=== PATIENT | female | born 1955 | race Asian ===

== ENCOUNTER 2024-02-29 12:59 | Outpatient (AMB) | payer MEDICARE, OTHER, SELFPAY ==
--- NOTE | 2024-02-29 13:06 | MHC.PC.OV ---
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 Intake Note: New patient visit Savings Teller Required: No Post menopausal: Yes Allergies No Known Allergies Allergy (Verified 02/29/24 13:07) Medication List - Last Reconciled 02/29/24 by Chante Arguello PA-C aspirin 81 mg PO DAILY pravastatin 40 mg PO DAILY Tobacco use date assessed: 02/29/24 Fall risk assessment: No Falls in past year Last assessed Fall Risk: 02/29/24 Dental Screening Dental Screen Date: 02/29/24 Did you have a dental visit in the last 12 months?: Yes Did you have a dental problem in the last 6 months where you did not have access to dental care?: No Was dental information given to patient?: Patient has dentist 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 She is transferring from [place]. CV: Her blood pressure today in the office is 146/78. She is on hydrochlorothiazide 12.5 mg. She can not tell me when her last cholesterol was but is on pravastatin 40 mg. No myalgias. No current chest pain, shortness and breath or palpitations. She states in the past she had this and went to Cardiology for a workup in [place]. States that she has had 2 stress tests, a Holter and an echo. We do not have any results today. Psych: She has been on wellbutrin for years but does not tolerate this. She states that every time she takes it she gets constipation. She does not feel like her anxiety and depression are well controlled and she has a hard time falling asleep and staying asleep at night. She thinks that that got worse with being on the Wellbutrin but it was an issue prior to the Wellbutrin. No SI/HI. She has been having some increased stress now that she lives in [place]. She is living with her son. Has a hx of abnormal left mammograms Mammogram: Colonoscopy: 2020 and states it was normal Bone density: about 3 years ago- osteoporosis- declines medications, believes that she tried Fosamax in the past but can not tell me why she did not tolerate this. Pap: s/p total hysterectomy [facility] Medical History (Updated 02/29/24 @ 14:20 by Chante Arguello PA-C) Osteoporosis Abnormal mammogram of left breast Major depressive disorder, recurrent, mild Generalized anxiety disorder Insomnia Dyslipidemia Hypertension Surgical History (Updated 02/29/24 @ 14:00 by Chante Arguello PA-C) S/P total hysterectomy Social History (Updated 02/29/24 @ 13:09 by Shannan Silverio CMA) Patient Tobacco Use Status: Never used Tobacco e-Cigarette/Vaping Use: Never Used Second Hand Smoke Exposure: Yes (past) service: No Current occupational status: retired Cognitive needs: No Hearing needs: No Vision needs: No Questionnaire PHQ-9 Over the last 2 weeks, how often have you been bothered by any of the following problems? 1. Little interest or pleasure in doing things: more than half the days 2. Feeling down, depressed, or hopeless: several days 3. Trouble falling or staying asleep, or sleeping too much: nearly every day 4. Feeling tired or having little energy: nearly every day 5. Poor appetite or overeating: several days 6. Feeling bad about yourself - or that you are a failure or have let yourself or your family down: several days 7. Trouble concentrating on things, such as reading the newspaper or watching television: several days 8. Moving or speaking so slowly that other people could have noticed. Or the opposite - being so fidgety or restless that you have been moving around a lot more than usual: several days 9. Thoughts that you would be better off or of hurting yourself in some way: not at all Total score: 13 Depression Screening Interpretation: Positive Depression Screening Follow-up: Existing condition, In treatment, New Medication prescribed and Change in Medication Depression Screening Done: Yes 29815 - PHQ-9 Billing: Yes Source: Developed by Drs. Ludwig Erwin, Marya Taylor, Raymond Leger and colleagues, with an educational danya from [employer]. Thrive Questionnaire I am a: Parent/Caregiver What is your living situation today?: I have a steady place to live Within the past 12 months, did the food you bought not last and you didn't have the money to get more?: Never true Within the past 12 months, did you worry whether your food would run out before you got money to buy more?: Never true Do you have trouble paying for medicines?: No Do you have trouble getting transportation to medical appointments?: No Do you have trouble paying your heating and electricity bill?: No Do you have trouble taking care of your child, family member or friend?: No Do you have trouble with day-to-day activities such as bathing, preparing meals, shopping, managing finances, etc.?: No Are you currently unemployed and looking for a job?: No Are you interested in more education?: No Please select the resources that you would like help with: None Currently or been in a relationship where the following occur: no concerns reported THRIVE Score: 0 AUDIT C Alcohol Use Questionnaire (AUDIT-C) 1. How often do you have a drink containing alcohol?: Never 3. How often do you have six or more drinks on one occasion?: Never Total Score: 0 JOSE-7 AMB Questionnaire JOSE-7 Feeling nervous, anxious, or on edge: 1 = Several days Not being able to stop or control worryin = More than half the days Worrying too much about different things: 2 = More than half the days Trouble relaxin = More than half the days Being so restless that it is hard to sit still: 1 = Several days Becoming easily annoyed or irritable: 0 = Not at all Feeling afraid as if something awful might happen: 1 = Several days Total JOSE-7 score (0-4 normal; 5-9 mild; 10-14 moderate; 15-21 severe): 9 Source: Developed by Drs. Ludwig Erwin, Marya Taylor, Raymond Leger and colleagues, with an educational danya from [employer]. JOSE-7 Assessment Billing JOSE-7 Assessment Tool: JOSE-7 Assessment 83485 Physical exam (Primary Care) Vital Signs: Last Vital Signs Temp 98.1 F 02/29/24 13:13 Pulse 81 02/29/24 13:13 Resp 16 02/29/24 13:13 BP 146/78 H 02/29/24 13:21 Pulse Ox 97 05/01/24 13:13 Tobacco/Smoking Status: Tobacco use Status Tobacco use date assessed 02/29/24 02/29/24 13:09 Patient Tobacco Use Status Never used Tobacco 02/29/24 13:09 e-Cigarette/Vaping Use Never Used 02/29/24 13:09 Depression Screening Interpretation: Positive Depression Screening Follow-up: Existing condition, In treatment, New Medication prescribed and Change in Medication Currently or been in a relationship where the following occur: no concerns reported Const Orientation/consciousness: patient oriented x3 HENMT Ears: hearing grossly normal bilaterally Neck Thyroid: Thyroid normal Lymphatic: no lymphadenopathy noted Resp Auscultation: clear to auscultation bilaterally Cardio Rate: regular rate Rhythm: regular rhythm Heart sounds: S1 normal heart sound present and S2 normal heart sound present GI Inspection: Yes normal to inspection Palpation (GI): Soft to palpation and Other GI palpation findings present (nontender, no cva tenderness) Auscultation: normoactive bowel sounds Rectal Exam - Female: deferred Skin General skin exam: no rashes or lesions noted Neuro General: patient oriented x3, gait normal and no focal motor deficits Assessment and Plan Assessment & Plan (1) Hypertension: Code(s): I10 - Essential (primary) hypertension Qualifiers: Hypertension type: primary hypertension Qualified Code(s): I10 - Essential (primary) hypertension Plan: Increased hydrochlorothiazide 25 mg. (2) Dyslipidemia: Code(s): E78.5 - Hyperlipidemia, unspecified Plan: Refilled pravastatin. We will recheck lipids and LFTs. (3) Insomnia: Code(s): G47.00 - Insomnia, unspecified Qualifiers: Insomnia type: primary Qualified Code(s): F51.01 - Primary insomnia Plan: We will start her on trazodone. Discussed risks and benefits and adverse effects of the medication. (4) Generalized anxiety disorder: Code(s): F41.1 - Generalized anxiety disorder Plan: Discontinue Wellbutrin. She has already taken herself off of this. We will start Lexapro. Discussed risks and benefits and adverse effects. Follow up in 3-4 weeks. Sooner if needed. (5) Major depressive disorder, recurrent, mild: Code(s): F33.0 - Major depressive disorder, recurrent, mild Plan: See above (6) Abnormal mammogram of left breast: Code(s): R92.8 - Other abnormal and inconclusive findings on diagnostic imaging of breast Plan: Mammogram ordered (7) Osteoporosis: Code(s): M81.0 - Age-related osteoporosis without current pathological fracture Qualifiers: Osteoporosis type: age-related Presence of current pathological fracture: without current pathological fracture Qualified Code(s): M81.0 - Age-related osteoporosis without current pathological fracture Plan: Discussed weight exercises and vitamin-D. We discussed a diet with enough calcium. We will recheck bone density in follow up pending test results. Plan Labs ordered today. Follow up in 3-4 weeks. Advised to obtain records. Patient understands and agrees with the plan. Orders: Orders Complete Blood Count Auto Diff Today E78.5 - Hyperlipidemia, unspecified, F33.0 - Major depressive disorder, recurrent, mild, F41.1 - Generalized anxiety disorder, G47.00 - Insomnia, unspecified, I10 - Essential (primary) hypertension, M81.0 - Age-related osteoporosis without current pathological fracture, R92.8 - Other abnormal and inconclusive findings on diagnostic imaging of breast, Z90.710 - Acquired absence of both cervix and uterus TSH reflex Free T4 Today E78.5 - Hyperlipidemia, unspecified, F33.0 - Major depressive disorder, recurrent, mild, F41.1 - Generalized anxiety disorder, G47.00 - Insomnia, unspecified, I10 - Essential (primary) hypertension, M81.0 - Age-related osteoporosis without current pathological fracture, R92.8 - Other abnormal and inconclusive findings on diagnostic imaging of breast, Z90.710 - Acquired absence of both cervix and uterus Vitamin B12 and Folate Today E78.5 - Hyperlipidemia, unspecified, F33.0 - Major depressive disorder, recurrent, mild, F41.1 - Generalized anxiety disorder, G47.00 - Insomnia, unspecified, I10 - Essential (primary) hypertension, M81.0 - Age-related osteoporosis without current pathological fracture, R92.8 - Other abnormal and inconclusive findings on diagnostic imaging of breast, Z90.710 - Acquired absence of both cervix and uterus Vitamin D 25-OH Total Today E55.9 - Vitamin D deficiency, unspecified, E78.5 - Hyperlipidemia, unspecified, F33.0 - Major depressive disorder, recurrent, mild, F41.1 - Generalized anxiety disorder, G47.00 - Insomnia, unspecified, I10 - Essential (primary) hypertension, M81.0 - Age-related osteoporosis without current pathological fracture, R92.8 - Other abnormal and inconclusive findings on diagnostic imaging of breast, Z90.710 - Acquired absence of both cervix and uterus Comprehensive [place]. Panel Fast Today E78.5 - Hyperlipidemia, unspecified, F33.0 - Major depressive disorder, recurrent, mild, F41.1 - Generalized anxiety disorder, G47.00 - Insomnia, unspecified, I10 - Essential (primary) hypertension, M81.0 - Age-related osteoporosis without current pathological fracture, R92.8 - Other abnormal and inconclusive findings on diagnostic imaging of breast, Z90.710 - Acquired absence of both cervix and uterus Lipid Panel Today E78.5 - Hyperlipidemia, unspecified, F33.0 - Major depressive disorder, recurrent, mild, F41.1 - Generalized anxiety disorder, G47.00 - Insomnia, unspecified, I10 - Essential (primary) hypertension, M81.0 - Age-related osteoporosis without current pathological fracture, R92.8 - Other abnormal and inconclusive findings on diagnostic imaging of breast, Z90.710 - Acquired absence of both cervix and uterus IRON PROFILE Today E78.5 - Hyperlipidemia, unspecified, F33.0 - Major depressive disorder, recurrent, mild, F41.1 - Generalized anxiety disorder, G47.00 - Insomnia, unspecified, I10 - Essential (primary) hypertension, M81.0 - Age-related osteoporosis without current pathological fracture, R92.8 - Other abnormal and inconclusive findings on diagnostic imaging of breast, Z90.710 - Acquired absence of both cervix and uterus Ferritin Today E78.5 - Hyperlipidemia, unspecified, F33.0 - Major depressive disorder, recurrent, mild, F41.1 - Generalized anxiety disorder, G47.00 - Insomnia, unspecified, I10 - Essential (primary) hypertension, M81.0 - Age-related osteoporosis without current pathological fracture, R92.8 - Other abnormal and inconclusive findings on diagnostic imaging of breast, Z90.710 - Acquired absence of both cervix and uterus XR DEXA axial skeleton Today Z78.0 - Asymptomatic menopausal state MM screening mammo BI Today Z12.31 - Encounter for screening mammogram for malignant neoplasm of breast Medications: New hydrochlorothiazide 25 mg PO QAM 90 tabs 1RF trazodone 50 mg PO BEDTIME 90 tabs 1RF escitalopram oxalate (Lexapro) take 1/2 tab po x 2 weeks then increase to 1 full tablet po daily 10 mg PO DAILY 90 tabs 1RF pravastatin 40 mg PO DAILY 90 tabs 3RF Coding Level of Care Code New Pt Level 3 (51198) Complex EM visit Add On G2211 Diagnoses Primary hypertension I10 Hypertension type: primary hypertension Dyslipidemia E78.5 Primary insomnia F51.01 Insomnia type: primary Generalized anxiety disorder F41.1 Major depressive disorder, recurrent, mild F33.0 Abnormal mammogram of left breast R92.8 Age-related osteoporosis without current pathological fracture M81.0 Osteoporosis type: age-related Presence of current pathological fracture: without current pathological fracture Additional Codes JOSE-7 Assessment Billing - JOSE-7 Assessment Tool: JOSE-7 Assessment [id number] ([id number])
[2024-02-29 13:13] VITALS: BP 168/88; PULSE 81; RESP 16; TEMP 36.7; O2SAT 97
[2024-02-29 13:21] VITALS: BP 146/78
== END 2024-02-29 14:17 | disposition home or self-care (01) ==
PROVIDERS: PCP Family Medicine; Visit Provider Physician Assistant
DX: I10 Essential (primary) hypertension (principal); F33.0 Major depressive disorder, recurrent, mild; E78.5 Hyperlipidemia, unspecified; F51.01 Primary insomnia; F41.1 Generalized anxiety disorder; R92.8 Other abnormal and inconclusive findings on diagnostic imaging of breast; M81.0 Age-related osteoporosis without current pathological fracture
CPT/HCPCS: 99204; G2211

== ENCOUNTER 2024-03-13 08:35 | Outpatient (REF) | payer MEDICARE, OTHER, SELFPAY ==
[2024-03-13 08:56] LABS: MANUAL DIFF FLAG NO
[2024-03-13 09:32] LABS: Basophils Absolute Auto 0.1 X10*3/uL (0.0-0.2); Basophils Percent Auto 1.4 % (0-2); Eosinophils Absolute Auto 0.1 X10*3/uL (0.0-0.4); Eosinophils Percent Auto 1.9 % (0-4); Hematocrit 39.5 % (37.0-47.0); Hemoglobin 13.1 g/dl (12.0-16.0); Imm Gran Abs Auto 0.01 X10*3/uL (0.00-0.03); Imm Gran Pct Auto 0.3 % (0.0-0.4); Lymphocytes Absolute Auto 1.1 X10*3/uL (1.2-4.9); Lymphocytes Percent Auto 30.2 % (20-40); Mean Corpuscular HGB Conc 33.2 g/dl (31.0-35.0); Mean Corpuscular Hemoglobin 27.9 pg (27.0-33.0); Mean Platelet Volume 9.8 fL (9.4-12.3); Monocytes Absolute Auto 0.3 X10*3/uL (0.1-1.2); Monocytes Percent Auto 9.3 % (2-11); Neutrophils Absolute Auto 2.1 x10*3/uL (2.0-8.3); Neutrophils Percent Auto 56.9 % (45-73); Platelet Count 265 X10*3/uL (160-400); Red Cell Distribution Width 12.7 % (11.0-16.0); White Blood Count 3.6 X10*3/uL (4.8-10.8)
[2024-03-13 10:26] LABS: Alanine Aminotransferase 14 U/L (0-31); Albumin Level 4.2 g/dL (3.5-5.0); Alkaline Phosphatase 67 U/L (39-117); Anion Gap 15 (12-20); Aspartate Amino Transferase 19 U/L (5-31); Bilirubin Total 0.5 mg/dL (0.0-1.0); Blood Urea Nitrogen 10 mg/dL (9-16); Calcium 9.4 mg/dL (8.4-10.2); Carbon Dioxide 29 mmol/L (22-29); Chloride 101 mmol/L (96-108); Cholesterol 166 mg/dL (<200); Estimated Glomerular Filt Rate > 60; Glucose Fasting 92 mg/dL (60-99); HDL Cholesterol 85 mg/dL (>40); Iron 63 mcg/dL (30-160); LDL Cholesterol Calculated 72 mg/dL (<100); Percent Iron Saturation 21 % (15-50); Potassium 3.1 mmol/L (3.3-5.1); Sodium 142 mmol/L (135-145); Total Iron Binding Capacity 297 mcg/dL (228-428); Total Protein 6.8 g/dL (6.5-8.0); Triglycerides 48 mg/dL (<150); Unsaturated Iron Binding 234 ug/dL
[2024-03-13 10:42] LABS: Ferritin 99 ng/mL (10-250); TSH reflex Free T4 1.91 uIU/mL (0.32-4.0); Vitamin D 25-OH Total 53.4 ng/mL (>30)
[2024-03-13 10:53] LABS: Folate 7.4 ng/mL (> or = 4.0); Vitamin B12 1274 pg/mL (200-900)
== END 2024-03-13 08:36 | disposition home or self-care (01) ==
LOC: HO.LAB 08:35
PROVIDERS: Visit Provider Physician Assistant
DX: I10 Essential (primary) hypertension (principal); E55.9 Vitamin D deficiency, unspecified; E78.5 Hyperlipidemia, unspecified; G47.00 Insomnia, unspecified; F41.1 Generalized anxiety disorder; F33.0 Major depressive disorder, recurrent, mild; R92.8 Other abnormal and inconclusive findings on diagnostic imaging of breast; M81.0 Age-related osteoporosis without current pathological fracture; Z90.710 Acquired absence of both cervix and uterus
CPT/HCPCS: 36415; 80053; 80061; 82306; 82607; 82728; 82746; 83540; 84443; 85025

== ENCOUNTER 2024-04-05 15:15 | Outpatient (AMB) | payer MEDICARE, OTHER, SELFPAY ==
--- NOTE | 2024-04-05 15:16 | MHC.PC.OV ---
Vital Signs 04/05/24 15:21 Height 4 ft 11 in Weight 93 lb 6 oz BMI 18.9 BP 122/78 Blood Pressure Location Lt brachial Position Sitting Respiration 12 Pulse 60 Pulse Source Pulse Oximeter Temp 97.9 F Temp Source Oral Pulse Oximetry (%) 97 Oxygen Delivery Method Room Air Intake Visit Reasons: meds Intake Note: Medication follow up Allergies No Known Allergies Allergy (Verified 04/05/24 15:18) Medication List - Last Reconciled 04/05/24 by Chante Arguello PA-C aspirin 81 mg PO DAILY escitalopram oxalate (Lexapro) 10 mg PO DAILY hydrochlorothiazide 25 mg PO QAM pravastatin 40 mg PO DAILY trazodone 50 mg PO BEDTIME Tobacco use date assessed: 02/29/24 Fall risk assessment: No Falls in past year Dental Screening Dental Screen Date: 02/29/24 HPI meds HPI Details Patient is a 68-year-old female with a significant past medical history of hypertension, hyperlipidemia, osteoporosis and anxiety and depression presenting today for a follow up. CV: Her blood pressure today in the office is 122/78. We increased her hydrochlorothiazide to 25 mg. She did not get her labs rechecked prior to appointment. Trying to increase potassium rich foods. Her last cholesterol was WNL she is on pravastatin 40 mg. No myalgias. She does complain today of this shortness and breath with exertion. She states it has been on and off for years but more recent in the last few weeks. She states that at times she gets chest pain but she thinks it is related to her stress. It does not appear to be exertional but the shortness a breath is. She does not feel like she is wheezing or coughing. No history of asthma. She states in the past she had this and went to Cardiology for a workup in [place]. States that she has had 2 stress tests, a Holter and an echo. We do not have any results today. No family history of an AR. she states her father had a CVA. Psych: At our last we discontinued her Wellbutrin and tapered up Lexapro. Started trazodone for sleep. She does find that she waking up feeling very groggy. No SI/HI. She has been having some increased stress now that she lives in [place]. She is living with her son. [facility] Medical History (Updated 04/05/24 @ 15:44 by Chante Arguello PA-C) Osteoporosis Abnormal mammogram of left breast Major depressive disorder, recurrent, mild Generalized anxiety disorder Insomnia Dyslipidemia Hypertension Surgical History (Updated 02/29/24 @ 14:00 by Chante Arguello PA-C) S/P total hysterectomy Social History (Updated 02/29/24 @ 13:09 by Shannan Silverio CMA) Housing: House Patient Tobacco Use Status: Never used Tobacco e-Cigarette/Vaping Use: Never Used Second Hand Smoke Exposure: Yes (past) service: No Current occupational status: retired Cognitive needs: No Hearing needs: No Vision needs: No Questionnaire AUDIT C Alcohol Use Questionnaire (AUDIT-C) 1. How often do you have a drink containing alcohol?: Never Total Score: 0 Physical exam (Primary Care) Vital Signs: Last Vital Signs Temp 97.9 F 04/05/24 15:21 Pulse 60 04/05/24 15:21 Resp 12 04/05/24 15:21 BP 122/78 04/05/24 15:21 Pulse Ox 97 04/05/24 15:21 Oxygen Delivery Method Room Air 04/05/24 15:21 BMI result Body Mass Index 18.9 Tobacco/Smoking Status: Tobacco use Status Tobacco use date assessed 02/29/24 04/05/24 15:18 Patient Tobacco Use Status Never used Tobacco 04/05/24 15:18 e-Cigarette/Vaping Use Never Used 04/05/24 15:18 Const Orientation/consciousness: patient oriented x3 HENMT Ears: hearing grossly normal bilaterally Neck Thyroid: Thyroid normal Lymphatic: no lymphadenopathy noted Resp Auscultation: clear to auscultation bilaterally Cardio Rate: regular rate Rhythm: regular rhythm Heart sounds: S1 normal heart sound present and S2 normal heart sound present GI Inspection: Yes normal to inspection Palpation (GI): Soft to palpation and Other GI palpation findings present (nontender, no cva tenderness) Auscultation: normoactive bowel sounds Rectal Exam - Female: deferred Skin General skin exam: no rashes or lesions noted Neuro General: patient oriented x3, gait normal and no focal motor deficits Office Procedures EKG Details: EKG today in office is sinus bradycardia at a rate of 59 beats per minute with nonspecific STT wave abnormalities. No prior study to compare. EKG interpreted by myself. [id number], Complete Results Reviewed Results Reviewed: Laboratory Tests 03/13/24 08:54 WBC 3.6 L RBC 4.70 Hgb 13.1 Plt Count 265 Sodium 142 Potassium 3.1 L Creatinine 0.75 Estimated GFR > 60 Fasting Glucose 92 Calcium 9.4 Iron 63 Ferritin 99 AST 19 ALT 14 Alkaline Phosphatase 67 Triglycerides 48 Cholesterol 166 LDL Cholesterol, Calc 72 HDL Cholesterol 85 25-OH Vitamin D Total 53.4 TSH 1.91 Assessment and Plan Assessment & Plan (1) CHRISTIAN (dyspnea on exertion): Code(s): R06.09 - Other forms of dyspnea Plan: Chest x-ray, EKG and stress test ordered. We will follow up pending test results. She states that she also wants Lyme disease testing because she wonders if it could be related. (2) Generalized anxiety disorder: Code(s): F41.1 - Generalized anxiety disorder Plan: We will discontinue the trazodone as she does wake up feeling groggy. Advised to follow up in 1-2 weeks to be reassessed. Tolerating the Lexapro. (3) Major depressive disorder, recurrent, mild: Code(s): F33.0 - Major depressive disorder, recurrent, mild Plan: As above. Feels better coming off of Wellbutrin. (4) Hypertension: Code(s): I10 - Essential (primary) hypertension Qualifiers: Hypertension type: primary hypertension Qualified Code(s): I10 - Essential (primary) hypertension Plan: Blood pressure improved with the increased dosage of the hydrochlorothiazide however we did discuss my concern of the hypokalemia and advised her to complete labs. (5) Dyslipidemia: Code(s): E78.5 - Hyperlipidemia, unspecified Plan: Well-controlled. Continue current regimen. (6) Hypokalemia: Code(s): E87.6 - Hypokalemia Plan: We will recheck today. If still low discussed starting potassium supplement as she does not want to switch blood pressure regimen. Orders: Orders Lyme IgG/IgM w/reflex to WB Today E78.5 - Hyperlipidemia, unspecified, E87.6 - Hypokalemia, F33.0 - Major depressive disorder, recurrent, mild, F41.1 - Generalized anxiety disorder, I10 - Essential (primary) hypertension, R06.09 - Other forms of dyspnea XR chest 2V Today E78.5 - Hyperlipidemia, unspecified, E87.6 - Hypokalemia, F33.0 - Major depressive disorder, recurrent, mild, F41.1 - Generalized anxiety disorder, I10 - Essential (primary) hypertension, R06.09 - Other forms of dyspnea AMB EKG-In Office Today E78.5 - Hyperlipidemia, unspecified, E87.6 - Hypokalemia, F33.0 - Major depressive disorder, recurrent, mild, F41.1 - Generalized anxiety disorder, I10 - Essential (primary) hypertension, R06.09 - Other forms of dyspnea CA stress test Today E78.5 - Hyperlipidemia, unspecified, I10 - Essential (primary) hypertension, R06.09 - Other forms of dyspnea Medications: Discontinued trazodone Discontinued Reason: Patient no longer taking 50 mg PO BEDTIME 90 tabs 1RF Coding Level of Care Code Est Pt Level 4 (21249) Complex EM visit Add On G2211 Diagnoses CHRISTIAN (dyspnea on exertion) R06.09 Generalized anxiety disorder F41.1 Major depressive disorder, recurrent, mild F33.0 Primary hypertension I10 Hypertension type: primary hypertension Dyslipidemia E78.5 Hypokalemia E87.6 CPT Codes EKG - CPT: 56464-[id number], Complete ([id number])
[2024-04-05 15:21] VITALS: BP 122/78; PULSE 60; RESP 12; TEMP 36.6; O2SAT 97; BMI 18.9
== END 2024-04-05 16:05 | disposition home or self-care (01) ==
PROVIDERS: PCP Family Medicine; Visit Provider Physician Assistant
DX: R06.09 Other forms of dyspnea (principal); F41.1 Generalized anxiety disorder; F33.0 Major depressive disorder, recurrent, mild; I10 Essential (primary) hypertension; E78.5 Hyperlipidemia, unspecified; E87.6 Hypokalemia
CPT/HCPCS: 93000; 99214; G2211

== ENCOUNTER 2024-04-12 15:05 | Outpatient (AMB) | payer MEDICARE, OTHER, SELFPAY ==
--- NOTE | 2024-04-12 15:06 | A.OFFPC_ITS ---
Vital Signs 04/12/24 15:10 Height 4 ft 11 in Weight 96 lb 2 oz BMI 19.4 BP 102/58 L Blood Pressure Location Lt brachial Position Sitting Respiration 12 Pulse 63 Pulse Source Pulse Oximeter Temp 97.9 F Temp Source Oral Pulse Oximetry (%) 98 Oxygen Delivery Method Room Air Intake Visit Reasons: med check Intake Note: medication follow up Accompanied by: Daughter Allergies No Known Allergies Allergy (Verified 04/12/24 15:09) Medication List - Last Reconciled 04/12/24 by Chante Arguello PA-C aspirin 81 mg PO DAILY escitalopram oxalate (Lexapro) 10 mg PO DAILY hydrochlorothiazide 25 mg PO QAM hydroxyzine HCl 25 mg PO BEDTIME pravastatin 40 mg PO DAILY Tobacco use date assessed: 02/29/24 Fall risk assessment: No Falls in past year Last assessed Fall Risk: 04/12/24 Dental Screening Dental Screen Date: 02/29/24 HPI med check HPI Details Patient is a 68-year-old female who presents today for a med review. Psych: At our last visit we discontinue the trazodone as she was waking up groggy and wondered if it was related to this medication. She was continued on the Lexapro. She has been feeling a lot better off of Wellbutrin. States that her constipation has resolved. She states that she still intermittently nauseous and wonders if it is related to the Lexapro. Her daughter is with her today at this appointment and states that her energy has been better and she seems like she is doing more around the house. She states that she has still not sleeping at night and is frustrated with this. CV: Blood pressure today in the office is 102/58. She was supposed to get her labs rechecked prior to our appointment but forgot to do this. Her potassium has been low in the past but she was increasing her potassium rich foods. [facility] Medical History (Updated 04/05/24 @ 15:44 by Chante Arguello PA-C) Osteoporosis Abnormal mammogram of left breast Major depressive disorder, recurrent, mild Generalized anxiety disorder Insomnia Dyslipidemia Hypertension Surgical History (Updated 02/29/24 @ 14:00 by Chante Arguello PA-C) S/P total hysterectomy Social History (Updated 02/29/24 @ 13:09 by Shannan Silverio CMA) Housing: House Patient Tobacco Use Status: Never used Tobacco e-Cigarette/Vaping Use: Never Used Second Hand Smoke Exposure: Yes (past) service: No Current occupational status: retired Cognitive needs: No Hearing needs: No Vision needs: No Questionnaire AUDIT C Alcohol Use Questionnaire (AUDIT-C) 1. How often do you have a drink containing alcohol?: Never 3. How often do you have six or more drinks on one occasion?: Never Total Score: 0 Physical exam (Primary Care) Vital Signs: Last Vital Signs Temp 97.9 F 04/12/24 15:10 Pulse 63 04/12/24 15:10 Resp 12 04/12/24 15:10 BP 102/58 L 04/12/24 15:10 Pulse Ox 98 04/12/24 15:10 Oxygen Delivery Method Room Air 04/12/24 15:10 BMI result Body Mass Index 19.4 Tobacco/Smoking Status: Tobacco use Status Tobacco use date assessed 02/29/24 04/12/24 15:08 Patient Tobacco Use Status Never used Tobacco 04/12/24 15:08 e-Cigarette/Vaping Use Never Used 04/12/24 15:08 Const Orientation/consciousness: patient oriented x3 HENMT Ears: hearing grossly normal bilaterally Neck Thyroid: Thyroid normal Lymphatic: no lymphadenopathy noted Resp Auscultation: clear to auscultation bilaterally Cardio Rate: regular rate Rhythm: regular rhythm Heart sounds: S1 normal heart sound present and S2 normal heart sound present GI Inspection: Yes normal to inspection Palpation (GI): Soft to palpation and Other GI palpation findings present (nontender, no cva tenderness) Auscultation: normoactive bowel sounds Rectal Exam - Female: deferred Skin General skin exam: no rashes or lesions noted Neuro General: patient oriented x3, gait normal and no focal motor deficits Assessment and Plan Assessment & Plan (1) Hypokalemia: Code(s): E87.6 - Hypokalemia Plan: If potassium is still low we discussed switching because she does not want to take a potassium supplement. We will follow up pending test results. She will do this today. (2) Hypertension: Code(s): I10 - Essential (primary) hypertension Qualifiers: Hypertension type: primary hypertension Qualified Code(s): I10 - Essential (primary) hypertension Plan: We will continue current regimen pending test results. (3) Major depressive disorder, recurrent, mild: Code(s): F33.0 - Major depressive disorder, recurrent, mild Plan: We will add hydroxyzine for sleep. Discussed risks and benefits and adverse effects of this medication. Plan Follow up in 1 month or sooner if needed. Patient understands and agrees with the plan. Medications: New hydroxyzine HCl 25 mg PO BEDTIME 30 tabs 0RF Coding Level of Care Code Est Pt Level 4 (04942) Diagnoses Hypokalemia E87.6 Primary hypertension I10 Hypertension type: primary hypertension Major depressive disorder, recurrent, mild F33.0
[2024-04-12 15:10] VITALS: BP 102/58; PULSE 63; RESP 12; TEMP 36.6; O2SAT 98; BMI 19.4
== END 2024-04-12 15:47 | disposition home or self-care (01) ==
PROVIDERS: PCP Family Medicine; Visit Provider Physician Assistant
DX: E87.6 Hypokalemia (principal); I10 Essential (primary) hypertension; F33.0 Major depressive disorder, recurrent, mild
CPT/HCPCS: 99214

== ENCOUNTER 2024-04-12 15:47 | Outpatient (REF) | payer MEDICARE, OTHER, SELFPAY ==
[2024-04-12 17:56] LABS: Anion Gap 9 (12-20); Blood Urea Nitrogen 15 mg/dL (9-16); Calcium 9.3 mg/dL (8.4-10.2); Carbon Dioxide 32 mmol/L (22-29); Chloride 98 mmol/L (96-108); Estimated Glomerular Filt Rate 50; Glucose Random 103 mg/dL (60-115); Potassium 3.3 mmol/L (3.3-5.1); Sodium 136 mmol/L (135-145)
[2024-04-17 05:04] LABS: Lyme Abs Screen <0.90 index
== END 2024-04-12 15:48 | disposition home or self-care (01) ==
LOC: HO.WFDLDS 15:47
PROVIDERS: Visit Provider Physician Assistant
DX: E87.6 Hypokalemia (principal); R06.09 Other forms of dyspnea; F33.0 Major depressive disorder, recurrent, mild; F41.1 Generalized anxiety disorder; I10 Essential (primary) hypertension; E78.5 Hyperlipidemia, unspecified
CPT/HCPCS: 36415; 80048; 86617; 86618

== ENCOUNTER 2024-04-17 10:31 | Outpatient (REF) | payer MEDICARE, OTHER, SELFPAY ==
--- NOTE | ~2024-04-17 | XR_ITS ---
EXAMINATION: XR CHEST CLINICAL INFORMATION: Hypokalemia. COMPARISON: None available. TECHNIQUE: 2 views of the chest were obtained. FINDINGS: Surgical clips in the upper abdomen. Mild dextroscoliosis of the thoracic spine with mild degenerative changes. The lungs are well inflated. There is no gross pneumothorax. Heart size is normal. No pleural effusion. Mildly prominent bibasilar opacities may represent atelectasis, although an inflammatory/infectious process should be considered in the appropriate clinical setting. XR/XR chest 2V IMPRESSION: Mildly prominent bibasilar opacities may represent atelectasis, although an inflammatory/infectious process should be considered in the appropriate clinical setting.
== END 2024-04-17 10:32 | disposition home or self-care (01) ==
LOC: HO.XRAY 10:31
PROVIDERS: PCP Family Medicine; Visit Provider Physician Assistant
DX: E87.6 Hypokalemia (principal); R06.09 Other forms of dyspnea; I10 Essential (primary) hypertension
CPT/HCPCS: 71046

== ENCOUNTER 2024-04-25 14:59 | Outpatient (AMB) | payer MEDICARE, OTHER, SELFPAY ==
--- NOTE | 2024-04-25 15:07 | A.OFFPC_ITS ---
Vital Signs 04/25/24 15:08 04/25/24 15:12 Height 4 ft 11 in Weight 95 lb 4 oz BMI 19.2 BP 148/62 H 137/75 Blood Pressure Location Rt brachial Rt brachial Position Sitting Sitting Pulse 87 Pulse Source Pulse Oximeter Pulse Oximetry (%) 97 Oxygen Delivery Method Room Air Intake Visit Reasons: F/U Labs Mover Required: No Allergies No Known Allergies Allergy (Verified 04/25/24 15:08) Medication List - Last Reconciled 04/25/24 by Chante Arguello PA-C aspirin 81 mg PO DAILY hydrochlorothiazide 25 mg PO QAM hydroxyzine HCl 25 mg PO BEDTIME pravastatin 40 mg PO DAILY Tobacco use date assessed: 02/29/24 Dental Screening Dental Screen Date: 02/29/24 HPI F/U Labs HPI Details Patient is a 68-year-old female who presents today for a med review. Psych: At our last visit we discontinue the trazodone as she was waking up groggy and wondered if it was related to this medication. She was continued on the Lexapro. She has been feeling a lot better off of Wellbutrin. States that her constipation has resolved. She does believe that the Lexapro was making her nauseous and would like to stop this. Her daughter is on venlafaxine and does well with this. She had genetic testing for this. We trialed hydroxyzine at the last visit and she states that this is very effective and she does not feel drowsy in the morning. She likes this medication and wants to stay on it. Her daughter in law is with her today at this appointment and states that her energy has been better and she seems like she is doing more around the house. CV: Blood pressure today in the office is 137/75. Her last potassium was improved and normal but her kidney function was a little decreased. She states that she was not well hydrated. [facility] Medical History (Updated 04/25/24 @ 15:41 by Chante Arguello PA-C) Osteoporosis Abnormal mammogram of left breast Major depressive disorder, recurrent, mild Generalized anxiety disorder Insomnia Dyslipidemia Hypertension Surgical History (Updated 02/29/24 @ 14:00 by Chante Arguello PA-C) S/P total hysterectomy Social History (Updated 02/29/24 @ 13:09 by Shannan Silverio CMA) Housing: House Patient Tobacco Use Status: Never used Tobacco e-Cigarette/Vaping Use: Never Used Second Hand Smoke Exposure: Yes (past) service: No Current occupational status: retired Cognitive needs: No Hearing needs: No Vision needs: No Physical exam (Primary Care) Vital Signs: Last Vital Signs Pulse 87 04/25/24 15:08 BP 137/75 04/25/24 15:12 Pulse Ox 97 04/25/24 15:08 Oxygen Delivery Method Room Air 04/25/24 15:08 BMI result Body Mass Index 19.2 Tobacco/Smoking Status: Tobacco use Status Tobacco use date assessed 02/29/24 04/25/24 15:13 Patient Tobacco Use Status Never used Tobacco 04/25/24 15:13 e-Cigarette/Vaping Use Never Used 04/25/24 15:13 Const Orientation/consciousness: patient oriented x3 HENMT Ears: hearing grossly normal bilaterally Neck Thyroid: Thyroid normal Lymphatic: no lymphadenopathy noted Resp Auscultation: clear to auscultation bilaterally Cardio Rate: regular rate Rhythm: regular rhythm Heart sounds: S1 normal heart sound present and S2 normal heart sound present GI Inspection: Yes normal to inspection Palpation (GI): Soft to palpation and Other GI palpation findings present (nontender, no cva tenderness) Auscultation: normoactive bowel sounds Rectal Exam - Female: deferred Skin General skin exam: no rashes or lesions noted Neuro General: patient oriented x3, gait normal and no focal motor deficits Assessment and Plan Assessment & Plan (1) Major depressive disorder, recurrent, mild: Code(s): F33.0 - Major depressive disorder, recurrent, mild Plan: We will switch to Effexor. Discussed risks and benefits and adverse effects of this medication. (2) Generalized anxiety disorder: Code(s): F41.1 - Generalized anxiety disorder Plan: As above (3) Insomnia: Code(s): G47.00 - Insomnia, unspecified Qualifiers: Insomnia type: primary Qualified Code(s): F51.01 - Primary insomnia Plan: Continue hydroxyzine (4) Decreased renal function: Code(s): N28.9 - Disorder of kidney and ureter, unspecified Plan: We will recheck kidney function prior to next appointment. Plan Follow up in 3-4 weeks. Sooner if needed. Patient understands and agrees with the plan. Orders: Orders Basic Metabolic Panel Today N28.9 - Disorder of kidney and ureter, unspecified Medications: New venlafaxine ER (Effexor XR) 37.5 mg PO DAILY 90 caps 0RF Refilled hydroxyzine HCl 25 mg PO BEDTIME 90 tabs 3RF Coding Level of Care Code Est Pt Level 4 (76053) Complex EM visit Add On G2211 Diagnoses Major depressive disorder, recurrent, mild F33.0 Generalized anxiety disorder F41.1 Primary insomnia F51.01 Insomnia type: primary Decreased renal function N28.9
[2024-04-25 15:08] VITALS: BP 148/62; PULSE 87; O2SAT 97; BMI 19.2
[2024-04-25 15:12] VITALS: BP 137/75
== END 2024-04-25 15:47 | disposition home or self-care (01) ==
PROVIDERS: PCP Family Medicine; Visit Provider Physician Assistant
DX: F33.0 Major depressive disorder, recurrent, mild (principal); F41.1 Generalized anxiety disorder; F51.01 Primary insomnia; N28.9 Disorder of kidney and ureter, unspecified
CPT/HCPCS: 99214; G2211

== ENCOUNTER 2024-05-23 14:29 | Outpatient (AMB) | payer MEDICARE, OTHER, SELFPAY ==
[2024-05-23 14:30] VITALS: BP 148/82; PULSE 60; O2SAT 98; BMI 20.1
--- NOTE | 2024-05-23 14:30 | A.OFFVIS_ITS ---
Vital Signs 05/23/24 14:30 Height 4 ft 11 in Weight 99 lb 6 oz BMI 20.1 BP 148/82 H Blood Pressure Location Lt brachial Position Sitting Pulse 60 Pulse Source Pulse Oximeter Pulse Oximetry (%) 98 Oxygen Delivery Method Room Air Intake Visit Reasons: dyspnea Allergies No Known Allergies Allergy (Verified 05/23/24 14:33) HPI HPI dyspnea: Details: Mavis is a pleasant 68 year old female, never smoker, with underlying HTN, osteoporosis, anxiety and hyperlipidemia. She was referred by PCP for pulmonary evaluation. She reports dyspnea on exertion, dry cough and wheezing for the past few months. Occasionally she reports orthopnea. Recent CXR report below. She denies prior PFT. PCP sending for echo, EKG and stress test. She reports asthma as a child, never requiring intubation. She reports seasonal allergies that are mild. She endorses reflux symptoms with sour taste in mouth and dry cough which is worse at night. She uses an OTC PPI but does not improve cough. She denies any pertinent family history. She denies any occupational exposures. [facility] Medical History (Updated 05/26/24 @ 21:46 by Jennifer King NP) Osteoporosis Abnormal mammogram of left breast Major depressive disorder, recurrent, mild Generalized anxiety disorder Insomnia Dyslipidemia Hypertension Surgical History (Updated 02/29/24 @ 14:00 by Chante Arguello PA-C) S/P total hysterectomy Social History Housing: House Patient Tobacco Use Status: Never used Tobacco e-Cigarette/Vaping Use: Never Used Second Hand Smoke Exposure: Yes (past) service: No Current occupational status: retired Cognitive needs: No Hearing needs: No Vision needs: No Review of Systems Const Denies chills, Denies excessive sweating, Denies fever(s), Denies headache(s) and Denies night sweats Eyes Denies dry eyes, Denies irritation and Denies itchy eyes ENT Reports Normal hearing present, Denies headache(s), Denies nasal congestion, Denies nasal discharge, Denies post nasal drip and Denies sore throat Card Denies chest pain, Denies chest pain at rest, Denies chest pain with activity, Denies claudication, Denies leg edema and Denies paroxysmal nocturnal dyspnea Resp Denies chest congestion, Denies excessive phlegm production, Denies pain on inspiration, Denies pain with cough, Denies stridor and Denies wheezing Musc Denies myalgias Neuro Reports Normal hearing present and Denies headache(s) Endo Denies excessive sweating Dario/Lymph Denies lymphadenopathy Aller/Immun Denies itchy eyes, Denies seasonal rhinorrhea and Denies wheezing Physical Exam Vital Signs: Last Vital Signs Pulse 60 05/23/24 14:30 BP 148/82 H 05/23/24 14:30 Pulse Ox 98 05/23/24 14:30 Oxygen Delivery Method Room Air 05/23/24 14:30 BMI result Body Mass Index 20.1 Const General: cooperative, healthy appearing, comfortable, no acute distress, well developed and alert Orientation/consciousness: patient oriented x3 Limitations: no limitations HEENT Head: Yes normal to inspection, Yes normocephalic and Yes atraumatic Ears: hearing grossly normal bilaterally and external ears normal Eyes General: appearance normal, both eyes and all related structures Eyelids: Yes eyelids normal Sclerae: sclerae normal EOM: EOMs intact bilaterally Neck Neck: Yes normal visual inspection and Yes no lymphadenopathy Lymphatic: no lymphadenopathy noted Chest Chest palpation & inspection: normal inspection of the chest Resp Effort & Inspection: normal respiratory effort, able to speak in complete sentences, no audible wheezes, no cough, no stridor, not tachypneic, no tripod positioning and no use of accessory muscles Auscultation: clear to auscultation bilaterally Cardio Jugular venous distension: no JVD Rate: regular rate Rhythm: regular rhythm Skin Other: warm, dry General skin exam: no rashes or lesions noted Neuro General: patient oriented x3 Cranial nerves: Yes Normal hearing present Cognition (Neuro): normal cognition Gait exam (Neuro): Normal gait present Extrem General: Yes normal to inspection, Yes capillary refill normal, Yes no clubbing, cyanosis or edema and Yes no pedal edema Psych Appearance: grossly normal and well kempt Speech and movement: Normal speech and movement present and Clear speech present Affect: normal affect Attitude: cooperative Thought process: Normal thought process present Thought content: Normal thought content present Insight: Good insight present (Psych) Judgement: Good judgement present (Psych) Results Reviewed Results Reviewed: [address] [place] [id number] XRay Report Signed Patient: Mavis Hughes MR#: [id number] : 1955 Acct:[id number] Age/Sex: 68 / F ADM Date: 04/17/24 Loc: [facility] Attending Dr: Chante Arguello PA-C Ordering Physician: Chante Arguello Date of Service: 04/17/24 Procedure(s): XR chest 2V Accession Number(s): [id number] cc: Steve Trinidad MD; Chante Arguello~ EXAMINATION: XR CHEST CLINICAL INFORMATION: Hypokalemia. COMPARISON: None available. TECHNIQUE: 2 views of the chest were obtained. FINDINGS: Surgical clips in the upper abdomen. Mild dextroscoliosis of the thoracic spine with mild degenerative changes. The lungs are well inflated. There is no gross pneumothorax. Heart size is normal. No pleural effusion. Mildly prominent bibasilar opacities may represent atelectasis, although an inflammatory/infectious process should be considered in the appropriate clinical setting. XR/XR chest 2V IMPRESSION: Mildly prominent bibasilar opacities may represent atelectasis, although an inflammatory/infectious process should be considered in the appropriate clinical setting. Dictated By: Treva Guillen MD Signed By: <Electronically signed by Treva Guillen MD in OV> 05/07/24 1258 DD/ 1050 TD/TT: Director Global Development: Assessment & Plan Assessment & Plan (1) CHRISTIAN (dyspnea on exertion): Code(s): R06.09 - Other forms of dyspnea Category: Medical (2) Environmental allergies: Code(s): Z91.09 - Other allergy status, other than to drugs and biological substances Category: Medical (3) Cough: Code(s): R05.9 - Cough, unspecified Category: Medical Plan Mavis presents for pulmonary evaluation for dyspnea on exertion and dry cough. She reports childhood asthma with resolution of symptoms until recently. Will send for PFT to evaluate for an obstructive defect contributing to symptoms.She is requesting this order to be sent to [facility]. Recent CXR revealed mildly prominent bibasilar opacities may represent atelectasis, although could be suggestive of infectious or inflammatory etiologies. Will send for chest CT to thoroughly evaluate. All questions were answered and patient is in agreement of plan. Will follow up to review results. Orders: Orders CT chest wo IV con Today R05.9 - Cough, unspecified, R93.89 - Abnormal findings on diagnostic imaging of other specified body structures PFT pulmonary function test Today R05.9 - Cough, unspecified, R06.09 - Other forms of dyspnea Coding Level of Care Code New Pt Level 4 (35223) Diagnoses CHRISTIAN (dyspnea on exertion) R06.09 Environmental allergies Z91.09 Cough R05.9
== END 2024-05-23 15:18 | disposition home or self-care (01) ==
PROVIDERS: PCP Physician Assistant; Referring Provider Physician Assistant; Visit Provider Nurse Practitioner Family
DX: R06.09 Other forms of dyspnea (principal); Z91.09 Other allergy status, other than to drugs and biological substances; R05.9 Cough, unspecified
CPT/HCPCS: 99204

== ENCOUNTER → 2024-05-23 14:29 | Outpatient (BNVA) | payer MEDICARE, SELFPAY | PROVIDERS: PCP Physician Assistant; Referring Provider Physician Assistant; Visit Provider Nurse Practitioner Family | DX: Z91.09 Other allergy status, other than to drugs and biological substances (principal); R06.09 Other forms of dyspnea; R05.9 Cough, unspecified | CPT/HCPCS: 99202 ==

== ENCOUNTER 2024-05-30 15:08 | Outpatient (AMB) | payer MEDICARE, OTHER, SELFPAY ==
--- NOTE | 2024-05-30 15:15 | A.OFFPC_ITS ---
Vital Signs 05/30/24 15:18 Height 4 ft 11 in Weight 99 lb 8 oz BMI 20.1 BP 138/72 Blood Pressure Location Lt brachial Position Sitting Pulse 73 Pulse Source Pulse Oximeter Pulse Oximetry (%) 97 Oxygen Delivery Method Room Air Intake Visit Reasons: F/U medications Intake Note: Medication follow up. Mammogram was r/s to [facility]. Allergies No Known Allergies Allergy (Verified 05/23/24 14:33) Tobacco use date assessed: 02/29/24 Dental Screening Dental Screen Date: 02/29/24 HPI F/U medications HPI Details Patient is a 68-year-old female who presents today for a follow up. -She also had labs which showed a decrea sed GFR. Forgot to get blood work done prior to our appointment today. Psych: At our last visit I started her on Effexor 37.5 mg for her anxiety and depression. She states that it has been very helpful for this. She tolerates it well. The hydroxyzine works wonderfully for her sleeping. CV: Blood pressure today in the office is 138/72. She is on hydrochlorothiazide daily. Tolerates this well. Pravastatin to control her cholesterol. -she complains today of left lower quadr ant pain that started about 5 days ago. She states that it is getting worse and it is radiating to her back/flank area. She denies any increased urinary frequency or urgency. No blood in her urine. No fever, chills. She is intermittently nauseous with this. No vomiting. She states that just this morning she started to develop an exacerbation of her chest pain. She states that she was doing yd work yesterday and thought that maybe she flared this up. It is also tender if she pushes on her chest or takes a deep breath. She was seen for chest pain in the past and has had a stress test where she previously lived by did order another 1 for her and she recently rescheduled her appointment. She does not want an EKG here today because she has her grandson with her. Her son drove her but he is waiting in the car. She states that she wants to just go to the hospital. Declines an ambulance. She does not feel dizzy denies any palpitations. Chest pain is better sitting here but she did have an hour ago. Her main concern is also this lower abdominal pain. She tried Advil for it without improvement. Denies any history of diverticulosis. Denies any previous abdominal surgery. [facility] Medical History (Updated 05/30/24 @ 16:24 by Chante Arguello PA-C) Osteoporosis Abnormal mammogram of left breast Major depressive disorder, recurrent, mild Generalized anxiety disorder Insomnia Dyslipidemia Hypertension Surgical History (Updated 02/29/24 @ 14:00 by Chante Arguello PA-C) S/P total hysterectomy Social History Housing: House Patient Tobacco Use Status: Never used Tobacco e-Cigarette/Vaping Use: Never Used Second Hand Smoke Exposure: Yes (past) service: No Current occupational status: retired Cognitive needs: No Hearing needs: No Vision needs: No Physical exam (Primary Care) Vital Signs: Last Vital Signs Pulse 73 05/30/24 15:18 BP 138/72 05/30/24 15:18 Pulse Ox 97 05/30/24 15:18 Oxygen Delivery Method Room Air 05/30/24 15:18 BMI result Body Mass Index 20.1 Tobacco/Smoking Status: Tobacco use Status Tobacco use date assessed 02/29/24 05/30/24 15:17 Patient Tobacco Use Status Never used Tobacco 05/30/24 15:17 e-Cigarette/Vaping Use Never Used 05/30/24 15:17 Const Orientation/consciousness: patient oriented x3 HENMT Ears: hearing grossly normal bilaterally Neck Thyroid: Thyroid normal Lymphatic: no lymphadenopathy noted Resp Auscultation: clear to auscultation bilaterally Cardio Rate: regular rate Rhythm: regular rhythm Heart sounds: S1 normal heart sound present and S2 normal heart sound present GI Other: Tenderness to palpation over the left lower quadrant with some guarding. No rebound tenderness. Mild left CVA tenderness. Inspection: Yes normal to inspection Palpation (GI): Soft to palpation Auscultation: normoactive bowel sounds Skin General skin exam: no rashes or lesions noted Neuro General: patient oriented x3, gait normal and no focal motor deficits Assessment and Plan Assessment & Plan (1) Major depressive disorder, recurrent, mild: Code(s): F33.0 - Major depressive disorder, recurrent, mild Plan: Continue current regimen (2) LLQ abdominal pain: Code(s): R10.32 - Left lower quadrant pain Plan: Did discuss with her that she should go to the ER for workup of this given that her pain has worsened. We do not have CT available here as stat. (3) Chest pain: Code(s): R07.9 - Chest pain, unspecified Plan: And expect was called into [facility]. She wants to go by private car. Not currently symptomatic but did have chest pain about 30-60 minutes ago. Declines EKG and wants to go to hospital. Son is going to drive her. Coding Level of Care Code Est Pt Level 4 (51074) Complex EM visit Add On G2211 Diagnoses Major depressive disorder, recurrent, mild F33.0 LLQ abdominal pain R10.32 Chest pain R07.9
[2024-05-30 15:18] VITALS: BP 138/72; PULSE 73; O2SAT 97; BMI 20.1
== END 2024-05-30 15:50 | disposition home or self-care (01) ==
PROVIDERS: PCP Family Medicine; Visit Provider Physician Assistant
DX: F33.0 Major depressive disorder, recurrent, mild (principal); R10.32 Left lower quadrant pain; R07.9 Chest pain, unspecified
CPT/HCPCS: 99214; G2211

== ENCOUNTER 2024-06-07 11:21 | Outpatient (AMB) | payer MEDICARE, OTHER, SELFPAY ==
--- NOTE | 2024-06-07 11:40 | MHC.PC.OV ---
Intake Visit Reasons: follow up Allergies No Known Allergies Allergy (Verified 05/23/24 14:33) Medication List - Last Reconciled 06/07/24 by Chante Arguelol PA-C aspirin 81 mg PO DAILY hydrochlorothiazide 25 mg PO QAM hydroxyzine HCl 25 mg PO BEDTIME nitrofurantoin monohyd/m-cryst 100 mg (Macrobid) 100 mg PO Q12H 7 days omeprazole 20 mg PO DAILY pravastatin 40 mg PO DAILY venlafaxine ER (Effexor XR) 37.5 mg PO DAILY Tobacco use date assessed: 02/29/24 Dental Screening Dental Screen Date: 02/29/24 HPI follow up HPI Details Patient is a 68-year-old female who presents today for a follow up. She went to the emergency room on 05/30/2024 with complaints today of left lower quadrant pain that started about 5 days ago. She states that it is getting worse and it is radiating to her back/flank area. She denies any increased urinary frequency or urgency. No blood in her urine. No fever, chills. She is intermittently nauseous with this. No vomiting. She tried Advil for it without improvement. Denies any history of diverticulosis. Denies any previous abdominal surgery. At the ER they did do a CT of the abdomen and pelvis which showed impression: Circumferential bladder wall thickening some of which is exaggerated by nondistended state but still abnormally thickened raising concern for cystitis. Recommend correlation with UA. No pyelonephritis or hydronephrosis. Incidental but significant finding of 2.3 x 1.5 cm low-density heterogeneous mass arising from the medial lower mid pole of the right kidney. The lesion contains some fat as well as soft tissue density. Both benign and malignant lesions can have this appearance. Follow up nonemergent MRI using renal mass protocol is recommended for further assessment. No significant diverticulosis or evidence of acute diverticulitis. Normal appendix. Mild constipation. We reviewed the imaging today and she did have a normal urine while at the emergency room but states that since then she has noticed some malodorous urine and increased urinary frequency and urgency. She wonders if she could have a UTI. She also complains today of an exacerbation of her chronic cough. She states that she has been belching a lot and feeling like she has some acid reflux. This has been going on for years on and off. She has not taken anything for this. Now vomiting, weight loss or difficulty eating or drinking. In regards to the renal mass she does feel like she can feel this. She says that she has back pain also on the right side. [facility] Medical History (Updated 06/07/24 @ 15:30 by Chante Arguello PA-C) Osteoporosis Abnormal mammogram of left breast Major depressive disorder, recurrent, mild Generalized anxiety disorder Insomnia Dyslipidemia Hypertension Surgical History (Updated 02/29/24 @ 14:00 by Chante Arguello PA-C) S/P total hysterectomy Social History Housing: House Patient Tobacco Use Status: Never used Tobacco e-Cigarette/Vaping Use: Never Used Second Hand Smoke Exposure: Yes (past) service: No Current occupational status: retired Cognitive needs: No Hearing needs: No Vision needs: No Physical exam (Primary Care) Tobacco/Smoking Status: Tobacco use Status Tobacco use date assessed 02/29/24 06/07/24 11:40 Patient Tobacco Use Status Never used Tobacco 06/07/24 11:40 e-Cigarette/Vaping Use Never Used 06/07/24 11:40 Telehealth Telehealth Telehealth Platform: Telephone Location of provider rendering services: practice address Location of patient: address on file Patient Identification confirmed using: Name, : Yes Telehealth method: voice only Patient verbally consented to treatment: Yes Patient verbally consented to billing insurance company: Yes Patient informed of any privacy concerns related to visit: Yes Minutes spent on Phone/Video with Pt.: 26 Assessment and Plan Assessment & Plan (1) Cough: Code(s): R05.9 - Cough, unspecified Qualifiers: Cough type: chronic Qualified Code(s): R05.3 - Chronic cough Plan: CT of abdomen and pelvis did touch some of the lungs and they were clear. ? Related to GERD. We will try omeprazole. Advised patient to provide a stool sample for us for H pylori testing prior to starting omeprazole. (2) GERD (gastroesophageal reflux disease): Code(s): K21.9 - Gastro-esophageal reflux disease without esophagitis Plan: As above (3) UTI (urinary tract infection): Code(s): N39.0 - Urinary tract infection, site not specified Qualifiers: Urinary tract infection type: acute cystitis Hematuria presence: without hematuria Qualified Code(s): N30.00 - Acute cystitis without hematuria Plan: We will start on Macrobid. Discussed risks and benefits and adverse effects of this medication. Given the bladder wall thickening with chronic features on CT I will also refer her to Urology for this and the right renal mass. MRI ordered. (4) Right renal mass: Code(s): N28.89 - Other specified disorders of kidney and ureter (5) Bladder wall thickening: Code(s): N32.89 - Other specified disorders of bladder (6) Lesion of liver less than 1 cm in diameter: Code(s): K76.9 - Liver disease, unspecified Plan: Mri of abdomen ordered Plan 1 month follow up or sooner prn. Orders: Orders MR abdomen wo/w con Today K76.9 - Liver disease, unspecified, N28.89 - Other specified disorders of kidney and ureter H pylori Ag Stool Today K21.9 - Gastro-esophageal reflux disease without esophagitis, R05.9 - Cough, unspecified Referrals Urology Referral N28.89 - Other specified disorders of kidney and ureter, N32.89 - Other specified disorders of bladder Medications: New nitrofurantoin monohyd/m-cryst 100 mg (Macrobid) must administer with a meal/food 100 mg PO Q12H 7 days 14 caps 0RF omeprazole 20 mg PO DAILY 30 caps 2RF Coding Level of Care Code Tele Est Pt Level 3 (24113) Diagnoses Chronic cough R05.3 Cough type: chronic GERD (gastroesophageal reflux disease) K21.9 Acute cystitis without hematuria N30.00 Urinary tract infection type: acute cystitis Hematuria presence: without hematuria Right renal mass N28.89 Bladder wall thickening N32.89 Lesion of liver less than 1 cm in diameter K76.9
== END 2024-06-08 08:31 | disposition home or self-care (01) ==
LOC: HO.HMGFM 11:21
PROVIDERS: PCP Physician Assistant; Visit Provider Physician Assistant
DX: R05.3 Chronic cough (principal); K21.9 Gastro-esophageal reflux disease without esophagitis; N30.00 Acute cystitis without hematuria; N28.89 Other specified disorders of kidney and ureter; N32.89 Other specified disorders of bladder; K76.9 Liver disease, unspecified
CPT/HCPCS: 99443

== ENCOUNTER 2024-06-07 14:53 | Outpatient (REF) | payer MEDICARE, OTHER, SELFPAY ==
--- NOTE | ~2024-06-07 | MM_ITS ---
EXAMINATION: MM SCREENING DIGITAL BREAST TOMOSYNTHESIS, BILATERAL CLINICAL INFORMATION: Screening. Asymptomatic. COMPARISON: Mammography: There are no prior mammograms for comparison. TECHNIQUE: Digital breast tomosynthesis is performed in both the craniocaudal and mediolateral oblique views along with computer-aided detection (CAD). Direct 2D images are also obtained. FINDINGS: The breasts are extremely dense, which lowers the sensitivity of mammography (ACR BI-RADS breast composition Category d). There are no significant masses, abnormal calcifications, or other abnormalities. There are bilateral benign calcifications. MM/MM tomosynthesis screening BI IMPRESSION: No mammographic evidence of malignancy. ASSESSMENT: BI-RADS BI-RADS 2 - Benign Findings RECOMMENDATION: Routine annual mammography screening. 1 year F/U This examination should not preclude the clinical evaluation of a suspicious palpable abnormality. This patient's information was entered into a reminder system with a target due date for their next mammogram. Electronically signed by: Monae Justin MD 07/05/2024 11:53 AM EDT
--- NOTE | ~2024-06-07 | MM_ITS ---
EXAMINATION: BONE DENSITOMETRY CLINICAL INDICATION: Asymptomatic menopausal state. COMPARISON: This is the patient's baseline examination. TECHNIQUE: Using a cube19 DXA System (software version: 13.1) manufactured by [employer], dual-energy x-ray absorptiometry was performed of the lumbar spine and left hip. The images are of good technical quality. Summary results are attached. FINDINGS: LEFT FEMUR, NECK: BMD 0.635 g/cm2, Z-score -0.8, T-score -2.9, osteoporosis. LEFT FEMUR, TOTAL: BMD 0.693 g/cm2, Z-score -0.6, T-score -2.5, osteoporosis. AP SPINE L1-L4: BMD 0.661 g/cm2, Z-score -2.0, T-score -4.3, osteoporosis. IDENTIFIED RISK FACTORS: Early menopause, secondary osteoporosis, hysterectomy, bilateral oophorectomy. HISTORY OF FRACTURE: None listed. MEDICATIONS: Multivitamin. MM/XR DEXA axial skeleton IMPRESSION: 1. DIAGNOSIS: Osteoporosis based on the lowest T-score value of -4.3 in the lumbar spine applying World Health Organization criteria. 2. 10-YEAR FRACTURE RISK PREDICTION, FRAX: According to the guidelines, FRAX calculation should only be performed on patients in the osteopenia bone density category. Therefore, FRAX was not performed on this patient. 3. Treatment Recommendations: NOF guidelines recommend consideration for treatment in postmenopausal women and men age 50 and older presenting with the following: -A hip or vertebral (clinical or morphometric) fracture. -T-score less than or equal to -2.5 at the femoral neck or spine after appropriate evaluation to exclude secondary causes. -Low bone mass at the hip or spine and a 10-year fracture probability by FRAX of greater than or equal to 3% for hip fracture or greater than or equal to 20% for major osteoporotic fracture based on the [place] adapted WHO algorithm. 4. Other Recommendations: All treatment decisions require clinical judgment and consideration of individual patient factors, including patient preferences, comorbidities, previous drug use, risk factors not captured in the FRAX model (e.g. frailty, falls, vitamin D deficiency, increased bone turnover, interval significant decline in bone density) and possible under or overestimation of fracture risk by FRAX. Additional medical evaluation for secondary cause of low bone mineral density may be appropriate. FUTURE SCAN RECOMMENDATION: People with diagnosed cases of osteoporosis or at high risk for fracture should have regular bone mineral density tests. For patients eligible for Medicare, routine testing is allowed once every 2 years. The testing frequency can be increased to one year for patients who have rapidly progressing disease, those who are receiving or discontinuing medical therapy to restore bone mass, or have additional risk factors.
== END 2024-06-07 14:54 | disposition home or self-care (01) ==
LOC: HO.MAMMO 14:53
PROVIDERS: PCP Physician Assistant; Visit Provider Physician Assistant
DX: Z12.31 Encounter for screening mammogram for malignant neoplasm of breast (principal); Z13.820 Encounter for screening for osteoporosis; Z78.0 Asymptomatic menopausal state
CPT/HCPCS: 77063; 77067; 77080

== ENCOUNTER → 2024-06-07 15:15 | Outpatient (BNV) | payer MEDICARE, OTHER, SELFPAY | PROVIDERS: PCP Physician Assistant; Visit Provider Radiology Diagnostic Radiology | DX: Z12.31 Encounter for screening mammogram for malignant neoplasm of breast (principal) | CPT/HCPCS: 77063; 77067 ==

== ENCOUNTER 2024-06-08 14:03 | Outpatient (REF) | payer MEDICARE, OTHER, SELFPAY | END 2024-06-08 14:04 | disposition home or self-care (01) | LOC: HO.LNP 14:03 | PROVIDERS: Visit Provider Physician Assistant | DX: R05.9 Cough, unspecified (principal); K21.9 Gastro-esophageal reflux disease without esophagitis | CPT/HCPCS: 87338 ==

== ENCOUNTER 2024-06-20 09:07 | Outpatient (AMB) | payer MEDICARE, OTHER, SELFPAY ==
--- NOTE | 2024-06-20 09:30 | A.OFFPC_ITS ---
Vital Signs 06/20/24 09:31 Height 4 ft 10.15 in Weight 101 lb 6 oz BMI 21.1 BP 128/68 Blood Pressure Location Lt brachial Position Sitting Respiration 16 Pulse 68 Pulse Source Pulse Oximeter Temp Source Temporal Artery Scan Pulse Oximetry (%) 98 Oxygen Delivery Method Room Air Intake Visit Reasons: ER Follow up Intake Note: Emergency room follow up Allergies No Known Allergies Allergy (Verified 06/08/24 11:24) Tobacco use date assessed: 02/29/24 Dental Screening Dental Screen Date: 02/29/24 HPI ER Follow up HPI Details Patient is a 68-year-old female who presents today for a follow up of imaging, cough and back pain. GI: at last visit discussed GERD causing/worsening her chronic cough. started on omeprazole which she states has been great. No longer having cough or acid reflux. -She did have a MRI of her abdomen and p demetris given the right renal mass on CT from her ER visit and her MRI results today show: Impression: A 2.3 cm lesion in the lower pole of the right kidney containing macroscopic fat and with be internal enhancement most suggestive of an angiomyolipoma. No remote imaging comparisons are available. Given size larger than 2 cm, surveillance MRI in 2 years is recommended. A 1.1 cm septated cystic lesion in the pancreatic neck likely communicating to the pancreatic duct probably represents side branch IPMN. Per ACR recommendations, follow up MRI in 2 years is recommended. Right renal lesion and pancreatic cystic lesion can be assessed at the same exam. Simple 1.1 cm cyst in segment 6 of liver. At our last visit she was referred to Urology for the bladder wall thickening and renal mass. States that she has not heard but she also ignores most of her phone calls. Her urine was negative for UTI. She denies any increased urinary frequency, urgency or dysuria. PULM: In regards to her chronic cough she is following pulmonology and states that she had PFTs last week. Results not yet back. CV: Chest pains are better since cheating acid reflux but she still sometimes gets this. Stress test is ordered. BP today is 128/68. On hydrochlorothiazide and doing well. She is on pravastatin to control her cholesterol. Musculoskeletal: Back pain is somewhat improved. We did review that she was active in the garden prior to her symptoms being exacerbated and likely was musculoskeletal. Psych: Does feel that the Effexor is very effective for her anxiety. Hydroxyzine is helpful for sleep. [facility] Medical History (Updated 06/20/24 @ 10:12 by Chante Arguello PA-C) Osteoporosis Abnormal mammogram of left breast Major depressive disorder, recurrent, mild Generalized anxiety disorder Insomnia Dyslipidemia Hypertension Surgical History (Updated 02/29/24 @ 14:00 by Chante Arguello PA-C) S/P total hysterectomy Social History Housing: House Patient Tobacco Use Status: Never used Tobacco e-Cigarette/Vaping Use: Never Used Second Hand Smoke Exposure: Yes (past) service: No Current occupational status: retired Cognitive needs: No Hearing needs: No Vision needs: No Physical exam (Primary Care) Vital Signs: Last Vital Signs Pulse 68 06/20/24 09:31 Resp 16 06/20/24 09:31 BP 128/68 06/20/24 09:31 Pulse Ox 98 06/20/24 09:31 Oxygen Delivery Method Room Air 06/20/24 09:31 BMI result Body Mass Index 21.1 Tobacco/Smoking Status: Tobacco use Status Tobacco use date assessed 02/29/24 06/20/24 09:33 Patient Tobacco Use Status Never used Tobacco 06/20/24 09:33 e-Cigarette/Vaping Use Never Used 06/20/24 09:33 Results Reviewed Results Reviewed: CT of the abdomen and pelvis which showed impression: Circumferential bladder wall thickening some of which is exaggerated by nondistended state but still abnormally thickened raising concern for cystitis. Recommend correlation with UA. No pyelonephritis or hydronephrosis. Incidental but significant finding of 2.3 x 1.5 cm low-density heterogeneous mass arising from the medial lower mid pole of the right kidney. The lesion contains some fat as well as soft tissue density. Both benign and malignant lesions can have this appearance. Follow up nonemergent MRI using renal mass protocol is recommended for further assessment. No significant diverticulosis or evidence of acute diverticulitis. Normal appendix. Mild constipation. Assessment and Plan Assessment & Plan (1) Angiomyolipoma of right kidney: Code(s): D17.71 - Benign lipomatous neoplasm of kidney Plan: We will repeat imaging in 2 years. MRI of abdomen and pelvis ordered. (2) Pancreatic cyst: Code(s): K86.2 - Cyst of pancreas Plan: As above. Patient is very anxious about this so I have referred her also to gastroenterology for further discussion and opinion. (3) GERD (gastroesophageal reflux disease): Code(s): K21.9 - Gastro-esophageal reflux disease without esophagitis Qualifiers: Esophagitis presence: without esophagitis Qualified Code(s): K21.9 - Gastro-esophageal reflux disease without esophagitis Plan: Doing well with omeprazole. Continue current regimen. Denies ever having endoscopy. Orders: Referrals Gastroenterology Referral K21.9 - Gastro-esophageal reflux disease without esophagitis, K86.2 - Cyst of pancreas Coding Level of Care Code Est Pt Level 4 (44502) Complex EM visit Add On G2211 Diagnoses Angiomyolipoma of right kidney D17.71 Pancreatic cyst K86.2 Gastroesophageal reflux disease without esophagitis K21.9 Esophagitis presence: without esophagitis
[2024-06-20 09:31] VITALS: BP 128/68; PULSE 68; RESP 16; O2SAT 98; BMI 21.1
== END 2024-06-20 10:03 | disposition home or self-care (01) ==
PROVIDERS: PCP Physician Assistant; Visit Provider Physician Assistant
DX: D17.71 Benign lipomatous neoplasm of kidney (principal); K86.2 Cyst of pancreas; K21.9 Gastro-esophageal reflux disease without esophagitis
CPT/HCPCS: 99214; G2211

== ENCOUNTER 2024-06-20 10:08 | Outpatient (REF) | payer MEDICARE, OTHER, SELFPAY ==
[2024-06-20 14:52] LABS: Anion Gap 10 (12-20); Blood Urea Nitrogen 16 mg/dL (9-16); Calcium 9.9 mg/dL (8.4-10.2); Carbon Dioxide 32 mmol/L (22-29); Chloride 98 mmol/L (96-108); Estimated Glomerular Filt Rate > 60; Glucose Random 49 mg/dL (60-115); Potassium 3.3 mmol/L (3.3-5.1); Sodium 137 mmol/L (135-145)
== END 2024-06-20 10:09 | disposition home or self-care (01) ==
LOC: HO.WFDLDS 10:08
PROVIDERS: Visit Provider Physician Assistant
DX: E16.2 Hypoglycemia, unspecified (principal)
CPT/HCPCS: 36415; 80048

== ENCOUNTER 2024-06-25 09:00 | Outpatient (REF) | payer MEDICARE, OTHER, SELFPAY ==
[2024-06-25 12:35] LABS: Anion Gap 13 (12-20); Blood Urea Nitrogen 13 mg/dL (9-16); Calcium 9.6 mg/dL (8.4-10.2); Carbon Dioxide 30 mmol/L (22-29); Chloride 99 mmol/L (96-108); Estimated Glomerular Filt Rate > 60; Glucose Fasting 95 mg/dL (60-99); Potassium 3.7 mmol/L (3.3-5.1); Sodium 138 mmol/L (135-145)
[2024-06-25 12:39] LABS: Insulin 3 uU/mL (2-29)
[2024-06-26 08:03] LABS: C Peptide 0.97 ng/mL (0.80-3.85)
== END 2024-06-25 09:01 | disposition home or self-care (01) ==
LOC: HO.WFDLDS 09:00
PROVIDERS: Visit Provider Physician Assistant
DX: E16.2 Hypoglycemia, unspecified (principal)
CPT/HCPCS: 36415; 80048; 83525; 84681

== ENCOUNTER 2024-07-05 15:36 | Outpatient (REF) | payer MEDICARE, OTHER, SELFPAY ==
--- NOTE | ~2024-07-05 | CT_ITS ---
EXAMINATION: CT CHEST WITHOUT CONTRAST CLINICAL INFORMATION: Cough COMPARISON: None available. TECHNIQUE: Multidetector volumetric CT imaging of the chest was done. Axial MIP volume rendering provided. Sagittal and coronal reformatted images were obtained. This CT examination was performed using dose optimization techniques as appropriate, variously including the following: *Automated exposure control *Adjustment of mA and/or kV according to patient size (this includes techniques or standardized protocols for targeted exams where dose is matched to indication/reason for exam; i.e. extremities or head) *Use of iterative reconstruction technique DLP: 68 mGy-cm FINDINGS: LUNGS: Right middle lobe 2 mm nodule (5:259). Right middle lobe 4 mm nodule (5:278). Right middle lobe 2 mm nodule (5:279). Right lower lobe 3 mm nodule (5:267). Right lower lobe 4 mm nodule (5:240). Right upper lobe 3 mm nodule (5:105) and 3 mm nodule identified: 125). Right upper lobe ill-defined mixed groundglass nodules measuring 4 mm (5:104) and 8 mm (5:72). Left upper lobe 3 mm nodule (5:227). Left upper lobe 3 mm nodule (5:119). Left upper lobe 3 mm nodule (5:219). 3 mm nodule in the left lower lobe (5:244). PLEURA: No pleural effusion. MEDIASTINUM: No cardiomegaly. Aorta and pulmonary artery are normal in caliber. No mediastinal adenopathy. Lack of IV contrast limits evaluation for hilar adenopathy. CORONARY ARTERY CALCIFICATION: No coronary artery calcification appreciated. CHEST WALL/AXILLA: No axillary or internal mammary lymphadenopathy. UPPER ABDOMEN: Status post cholecystectomy. OSSEOUS STRUCTURES: Unremarkable. CT/CT chest wo IV con IMPRESSION: Bilateral pulmonary nodules measuring up to 4 mm. Right upper lobe ill-defined mixed groundglass nodules measuring up to 8 mm. According to the UPDATED 2017 Fleischner Society recommendations, the advised followup imaging for multiple subsolid nodules, the largest of which measures 6 mm or greater, is: CT at 3-6 months to confirm persistence. Subsequent management should be based on the most suspicious nodule(s). Electronically signed by: Jessi Culp MD 07/17/2024 08:02 PM EDT
== END 2024-07-05 15:37 | disposition home or self-care (01) ==
LOC: HO.CT 15:36
PROVIDERS: PCP Physician Assistant; Visit Provider Nurse Practitioner Family
DX: R05.9 Cough, unspecified (principal); R93.89 Abnormal findings on diagnostic imaging of other specified body structures
CPT/HCPCS: 71250

== ENCOUNTER 2024-07-17 14:29 | Outpatient (AMB) | payer MEDICARE, OTHER, SELFPAY ==
[2024-07-17 14:32] VITALS: BP 134/72; PULSE 72; O2SAT 97; BMI 20.9
--- NOTE | 2024-07-17 14:32 | MHC.OFFVIS ---
Vital Signs 07/17/24 14:32 Height 4 ft 10.15 in Weight 100 lb 6 oz BMI 20.9 BP 134/72 Blood Pressure Location Rt brachial Position Sitting Pulse 72 Pulse Source Pulse Oximeter Pulse Oximetry (%) 97 Oxygen Delivery Method Room Air Intake Visit Reasons: dyspnea Allergies No Known Allergies Allergy (Verified 07/17/24 14:36) HPI HPI dyspnea: Details: Mavis is a pleasant 68 year old female, never smoker, with underlying asthma, HTN, osteoporosis, anxiety and hyperlipidemia. She was referred by PCP for pulmonary evaluation. She reports dyspnea on exertion, dry cough and wheezing for the past few months. PCP sending for echo, EKG and stress test. She endorses reflux symptoms with sour taste in mouth, started using omeprazole with resolution, however did not improve cough. Today she presents to review chest CT and PFT. [facility] Medical History (Updated 07/24/24 @ 12:57 by Jennifer King NP) Osteoporosis Abnormal mammogram of left breast Major depressive disorder, recurrent, mild Generalized anxiety disorder Insomnia Dyslipidemia Hypertension Surgical History (Updated 02/29/24 @ 14:00 by Chante Arguello PA-C) S/P total hysterectomy Social History Housing: House Patient Tobacco Use Status: Never used Tobacco e-Cigarette/Vaping Use: Never Used Second Hand Smoke Exposure: Yes (past) service: No Current occupational status: retired Cognitive needs: No Hearing needs: No Vision needs: No Review of Systems Const Denies chills, Denies excessive sweating, Denies fever(s), Denies headache(s) and Denies night sweats Eyes Denies dry eyes, Denies irritation and Denies itchy eyes ENT Reports Normal hearing present, Denies headache(s), Denies nasal congestion, Denies nasal discharge, Denies post nasal drip and Denies sore throat Card Denies chest pain, Denies chest pain at rest, Denies chest pain with activity, Denies claudication, Denies leg edema and Denies paroxysmal nocturnal dyspnea Resp Denies chest congestion, Denies excessive phlegm production, Denies pain on inspiration, Denies pain with cough, Denies stridor and Denies wheezing Musc Denies myalgias Neuro Reports Normal hearing present and Denies headache(s) Endo Denies excessive sweating Dario/Lymph Denies lymphadenopathy Aller/Immun Denies itchy eyes, Denies seasonal rhinorrhea and Denies wheezing Physical Exam Vital Signs: Last Vital Signs Pulse 72 07/17/24 14:32 BP 134/72 07/17/24 14:32 Pulse Ox 97 07/17/24 14:32 Oxygen Delivery Method Room Air 07/17/24 14:32 BMI result Body Mass Index 20.9 Const General: cooperative, healthy appearing, comfortable, no acute distress, well developed and alert Orientation/consciousness: patient oriented x3 Limitations: no limitations HEENT Head: Yes normal to inspection, Yes normocephalic and Yes atraumatic Ears: hearing grossly normal bilaterally and external ears normal Eyes General: appearance normal, both eyes and all related structures Eyelids: Yes eyelids normal Sclerae: sclerae normal EOM: EOMs intact bilaterally Neck Neck: Yes normal visual inspection and Yes no lymphadenopathy Lymphatic: no lymphadenopathy noted Chest Chest palpation & inspection: normal inspection of the chest Resp Effort & Inspection: normal respiratory effort, able to speak in complete sentences, no audible wheezes, no cough, no stridor, not tachypneic, no tripod positioning and no use of accessory muscles Auscultation: clear to auscultation bilaterally Cardio Jugular venous distension: no JVD Rate: regular rate Rhythm: regular rhythm Skin Other: warm, dry General skin exam: no rashes or lesions noted Neuro General: patient oriented x3 Cranial nerves: Yes Normal hearing present Cognition (Neuro): normal cognition Gait exam (Neuro): Normal gait present Extrem General: Yes normal to inspection, Yes capillary refill normal, Yes no clubbing, cyanosis or edema and Yes no pedal edema Psych Appearance: grossly normal and well kempt Speech and movement: Normal speech and movement present and Clear speech present Affect: normal affect Attitude: cooperative Thought process: Normal thought process present Thought content: Normal thought content present Insight: Good insight present (Psych) Judgement: Good judgement present (Psych) Results Reviewed Results Reviewed: [address] [address] [address] Scan Report Signed Patient: Mavis Hughes MR#: [id number] : 1955 Acct:[id number] Age/Sex: 68 / F ADM Date: 07/05/24 Loc: HO.CT Attending Dr: Jennifer King NP Ordering Physician: Jennifer King NP Date of Service: 07/05/24 Procedure(s): CT chest wo IV con Accession Number(s): [id number] cc: Chante Arguello; 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 TECHNIQUE: Multidetector volumetric CT imaging of the chest was done. Axial MIP volume rendering provided. Sagittal and coronal reformatted images were obtained. This CT examination was performed using dose optimization techniques as appropriate, variously including the following: *Automated exposure control *Adjustment of mA and/or kV according to patient size (this includes techniques or standardized protocols for targeted exams where dose is matched to indication/reason for exam; i.e. extremities or head) *Use of iterative reconstruction technique DLP: 68 mGy-cm FINDINGS: LUNGS: Right middle lobe 2 mm nodule (5:259). Right middle lobe 4 mm nodule (5:278). Right middle lobe 2 mm nodule (5:279). Right lower lobe 3 mm nodule (5:267). Right lower lobe 4 mm nodule (5:240). Right upper lobe 3 mm nodule (5:105) and 3 mm nodule identified: 125). Right upper lobe ill-defined mixed groundglass nodules measuring 4 mm (5:104) and 8 mm (5:72). Left upper lobe 3 mm nodule (5:227). Left upper lobe 3 mm nodule (5:119). Left upper lobe 3 mm nodule (5:219). 3 mm nodule in the left lower lobe (5:244). PLEURA: No pleural effusion. MEDIASTINUM: No cardiomegaly. Aorta and pulmonary artery are normal in caliber. No mediastinal adenopathy. Lack of IV contrast limits evaluation for hilar adenopathy. CORONARY ARTERY CALCIFICATION: No coronary artery calcification appreciated. CHEST WALL/AXILLA: No axillary or internal mammary lymphadenopathy. UPPER ABDOMEN: Status post cholecystectomy. OSSEOUS STRUCTURES: Unremarkable. CT/CT chest wo IV con IMPRESSION: Bilateral pulmonary nodules measuring up to 4 mm. Right upper lobe ill-defined mixed groundglass nodules measuring up to 8 mm. According to the UPDATED 2017 Fleischner Society recommendations, the advised followup imaging for multiple subsolid nodules, the largest of which measures 6 mm or greater, is: CT at 3-6 months to confirm persistence. Subsequent management should be based on the most suspicious nodule(s). Electronically signed by: Jessi Culp MD 07/17/2024 08:02 PM EDT RP Dictated By: Jessi Culp MD Signed By: <Electronically signed by Jessi Culp MD in OV> 07/17/242001 DD/ 1548 TD/TT: 07/05/24 1559 Assurance Senior Manager Insurance: Assessment & Plan Assessment & Plan (1) Cough: Code(s): R05.9 - Cough, unspecified Category: Medical Qualifiers: Cough type: chronic Qualified Code(s): R05.3 - Chronic cough (2) Asthma: Code(s): J45.909 - Unspecified asthma, uncomplicated Category: Medical (3) Multiple pulmonary nodules: Code(s): R91.8 - Other nonspecific abnormal finding of lung field Category: Medical Plan Reviewed PFT which revealed normal spirometry without significant response to bronchodilator. There was slightly increased TLC and RV and normal DLCO. Reviewed chest CT with patient which revealed multiple pulmonary nodules as well as an 8 mm ggo of the RUL. Will send for repeat chest CT in 6 months to assess stability. Will empirically trial on ICS. Discussed importance of good oral hygiene to prevent thrush. All questions were answered and patient is in agreement of plan. Will follow up to review response to inhaler or sooner if needed. Medications: New ciclesonide 80 mcg/actuation ([place]) 1 puff inhalation BID 6.1 grams 3RF Coding Level of Care Code Est Pt Level 4 (65985) Diagnoses Chronic cough R05.3 Cough type: chronic Asthma J45.909 Multiple pulmonary nodules R91.8
== END 2024-07-17 15:10 | disposition home or self-care (01) ==
PROVIDERS: PCP Physician Assistant; Visit Provider Nurse Practitioner Family
DX: R05.3 Chronic cough (principal); J45.909 Unspecified asthma, uncomplicated; R91.8 Other nonspecific abnormal finding of lung field
CPT/HCPCS: 99214

== ENCOUNTER → 2024-07-17 14:29 | Outpatient (BNVA) | payer MEDICARE, SELFPAY | PROVIDERS: PCP Physician Assistant; Visit Provider Nurse Practitioner Family | DX: J45.909 Unspecified asthma, uncomplicated (principal); R05.3 Chronic cough; R06.00 Dyspnea, unspecified; R91.8 Other nonspecific abnormal finding of lung field | CPT/HCPCS: 99212 ==

== ENCOUNTER 2024-09-04 14:03 | Outpatient (AMB) | payer MEDICARE, SELFPAY ==
--- NOTE | 2024-09-04 14:04 | A.OFFVIS_ITS ---
Vital Signs 09/04/24 14:06 Height 4 ft 10.15 in Weight 105 lb 6 oz BMI 21.9 BP 142/88 H Blood Pressure Location Rt brachial Position Sitting Pulse 80 Pulse Source Pulse Oximeter Pulse Oximetry (%) 97 Oxygen Delivery Method Room Air Intake Visit Reasons: dyspnea Allergies No Known Allergies Allergy (Verified 09/04/24 14:09) HPI HPI dyspnea: Details: Mavis is a pleasant 68 year old female, never smoker, with underlying asthma, HTN, osteoporosis, anxiety and hyperlipidemia. At the last visit she was started on ICS with significant improvements in chest tightness and dyspnea however continues with dry cough, worse at night. She attributes to possible allergies and recent started using claritin with some effect. She denies any visits to urgent care or hospitalizations related to respiratory distress since the last visit. [facility] Medical History (Updated 07/24/24 @ 12:57 by Jennifer King NP) Osteoporosis Abnormal mammogram of left breast Major depressive disorder, recurrent, mild Generalized anxiety disorder Insomnia Dyslipidemia Hypertension Surgical History (Updated 02/29/24 @ 14:00 by Chante Arguello PA-C) S/P total hysterectomy Social History Housing: House Patient Tobacco Use Status: Never used Tobacco e-Cigarette/Vaping Use: Never Used Second Hand Smoke Exposure: Yes (past) service: No Current occupational status: retired Cognitive needs: No Hearing needs: No Vision needs: No Review of Systems Const Denies chills, Denies excessive sweating, Denies fever(s), Denies headache(s) and Denies night sweats Eyes Denies dry eyes, Denies irritation and Denies itchy eyes ENT Reports Normal hearing present, Denies headache(s), Denies nasal congestion, Denies nasal discharge and Denies sore throat Card Denies chest pain, Denies chest pain at rest, Denies chest pain with activity, Denies claudication, Denies leg edema and Denies paroxysmal nocturnal dyspnea Resp Denies chest congestion, Denies excessive phlegm production, Denies pain on inspiration, Denies pain with cough, Denies stridor and Denies wheezing Musc Denies myalgias Neuro Reports Normal hearing present and Denies headache(s) Endo Denies excessive sweating Dario/Lymph Denies lymphadenopathy Aller/Immun Denies itchy eyes, Denies seasonal rhinorrhea and Denies wheezing Physical Exam Vital Signs: Last Vital Signs Pulse 80 09/04/24 14:06 BP 142/88 H 09/04/24 14:06 Pulse Ox 97 09/04/24 14:06 Oxygen Delivery Method Room Air 09/04/24 14:06 BMI result Body Mass Index 21.9 Const General: cooperative, healthy appearing, comfortable, no acute distress, well developed and alert Orientation/consciousness: patient oriented x3 Limitations: no limitations HEENT Head: Yes normal to inspection, Yes normocephalic and Yes atraumatic Ears: hearing grossly normal bilaterally and external ears normal Eyes General: appearance normal, both eyes and all related structures Eyelids: Yes eyelids normal Sclerae: sclerae normal EOM: EOMs intact bilaterally Neck Neck: Yes normal visual inspection and Yes no lymphadenopathy Lymphatic: no lymphadenopathy noted Chest Chest palpation & inspection: normal inspection of the chest Resp Effort & Inspection: normal respiratory effort, able to speak in complete s entences, no audible wheezes, no cough, no stridor, not tachypneic, no tripod positioning and no use of accessory muscles Auscultation: clear to auscultation bilaterally Cardio Jugular venous distension: no JVD Rate: regular rate Rhythm: regular rhythm Skin Other: warm, dry General skin exam: no rashes or lesions noted Neuro General: patient oriented x3 Cranial nerves: Yes Normal hearing present Cognition (Neuro): normal cognition Gait exam (Neuro): Normal gait present Extrem General: Yes normal to inspection, Yes capillary refill normal, Yes no clubbing, cyanosis or edema and Yes no pedal edema Psych Appearance: grossly normal and well kempt Speech and movement: Normal speech and movement present and Clear speech present Affect: normal affect Attitude: cooperative Thought process: Normal thought process present Thought content: Normal thought content present Insight: Good insight present (Psych) Judgement: Good judgement present (Psych) Assessment & Plan Assessment & Plan (1) Cough: Code(s): R05.9 - Cough, unspecified Category: Medical Qualifiers: Cough type: chronic Qualified Code(s): R05.3 - Chronic cough (2) Asthma: Code(s): J45.909 - Unspecified asthma, uncomplicated Category: Medical (3) Multiple pulmonary nodules: Code(s): R91.8 - Other nonspecific abnormal finding of lung field Category: Medical (4) Environmental allergies: Code(s): Z91.09 - Other allergy status, other than to drugs and biological substances Category: Medical Plan Will switch Fluticasone to Symbicort, as patient reported suboptimal effect with ICS. Will also send for RAST to assess for an allergic component. All questions were answered and patient is in agreement of plan. Will follow up to review response to inhaler or sooner if needed. Orders: Orders Resp Allergy Profile Region I Today Z91.09 - Other allergy status, other than to drugs and biological substances Complete Blood Count Auto Diff Today Z91.09 - Other allergy status, other than to drugs and biological substances Immunoglobulin E Today Z91.09 - Other allergy status, other than to drugs and biological substances Medications: New budesonide-formoterol 80-4.5 mcg/actuation (Symbicort) 2 puffs inhalation Q12H 10.2 grams 5RF Coding Level of Care Code Est Pt Level 3 (44336) Diagnoses Chronic cough R05.3 Cough type: chronic Asthma J45.909 Multiple pulmonary nodules R91.8 Environmental allergies Z91.09
[2024-09-04 14:06] VITALS: BP 142/88; PULSE 80; O2SAT 97; BMI 21.9
== END 2024-09-04 14:25 | disposition home or self-care (01) ==
LOC: HO.HPSW 14:03
PROVIDERS: PCP Physician Assistant; Visit Provider Nurse Practitioner Family
DX: R05.3 Chronic cough (principal); J45.909 Unspecified asthma, uncomplicated; R91.8 Other nonspecific abnormal finding of lung field; Z91.09 Other allergy status, other than to drugs and biological substances
CPT/HCPCS: 99213

== ENCOUNTER → 2024-09-04 14:03 | Outpatient (BNVA) | payer MEDICARE, SELFPAY | PROVIDERS: PCP Physician Assistant; Visit Provider Nurse Practitioner Family | DX: J45.909 Unspecified asthma, uncomplicated (principal); R05.3 Chronic cough; R91.8 Other nonspecific abnormal finding of lung field; Z91.09 Other allergy status, other than to drugs and biological substances; Z23 Encounter for immunization | CPT/HCPCS: 36415; 82785; 85025; 86003; 90471; 90656; 99212 ==

== ENCOUNTER 2024-09-04 14:27 | Outpatient (REF) | payer MEDICARE, SELFPAY ==
[2024-09-04 17:45] LABS: MANUAL DIFF FLAG NO
[2024-09-04 18:19] LABS: Basophils Percent Auto 0.5 % (0-2); Eosinophils Absolute Auto 0.2 X10*3/uL (0.0-0.4); Eosinophils Percent Auto 4.1 % (0-4); Hematocrit 40.2 % (37.0-47.0); Hemoglobin 13.5 g/dl (12.0-16.0); Imm Gran Abs Auto 0.01 X10*3/uL (0.00-0.03); Imm Gran Pct Auto 0.2 % (0.0-0.4); Lymphocytes Absolute Auto 0.7 X10*3/uL (1.2-4.9); Lymphocytes Percent Auto 16.5 % (20-40); Mean Corpuscular HGB Conc 33.6 g/dl (31.0-35.0); Mean Corpuscular Hemoglobin 27.7 pg (27.0-33.0); Mean Corpuscular Volume 82.5 fL (80.0-98.0); Mean Platelet Volume 10.2 fL (9.4-12.3); Monocytes Absolute Auto 0.6 X10*3/uL (0.1-1.2); Monocytes Percent Auto 14.4 % (2-11); Neutrophils Absolute Auto 2.7 x10*3/uL (2.0-8.3); Neutrophils Percent Auto 64.3 % (45-73); Platelet Count 234 X10*3/uL (160-400); Red Blood Count 4.87 X10*6/uL (4.20-5.50); Red Cell Distribution Width 12.7 % (11.0-16.0); White Blood Count 4.2 X10*3/uL (4.8-10.8)
[2024-09-05 22:58] LABS: Class Alternaria alternata 0; Class Aspergillus fumigatus 0; Class Bermuda Grass 0; Class Birch 0; Class Cat Dander 0; Class Cladosporium herbarum 0; Class Cockroach 0; Class Common Ragweed 0; Class Cottonwood 0; Class Derm. pterony 0; Class Dermatophagoides farinae 0; Class Dog Dander 0; Class Elm 0; Class Maple Box Elder 0; Class Mountain Cedar 0; Class Mouse Urine Protein 0; Class Mugwort 0; Class Oak 0; Class Penicillium crysogenum 0; Class Rough Pigweed 0; Class Sheep Sorrel 0; Class Sycamore 0; Class Timothy Grass 0; Class Walnut Tree 0; Class White Ash 0; Class White Mulberry 0; D001 IgE D pteronyssinus <0.10 kU/L; D002 - IgE D farinae <0.10 kU/L; E001 - IgE Cat Dander <0.10 kU/L; E005 - IgE Dog Dander <0.10 kU/L; E072-IgE Mouse Urine <0.10 kU/L; G002 IgE Bermuda Grass <0.10 kU/L; G006 - IgE Timothy Grass <0.10 kU/L; I006-IgE Cockroach, German <0.10 kU/L; Immunoglobulin E 40 kU/L (<OR=114); M001 IgE Penicillium chrysogen <0.10 kU/L; M002 - IgE Cladosporium herbar <0.10 kU/L; M003 - IgE Aspergillus fumigat <0.10 kU/L; M006 - IgE Alternaria alternat <0.10 kU/L; T001 IgE Maple/Box Elder <0.10 kU/L; T003 IgE Common Silver Birch <0.10 kU/L; T006 - IgE Cedar, Mountain <0.10 kU/L; T007 - IgE Oak, White <0.10 kU/L; T008 IgE Elm, American <0.10 kU/L; T010 - IgE Walnut <0.10 kU/L; T011 - IgE Maple Leaf Sycamore <0.10 kU/L; T014 - IgE Cottonwood <0.10 kU/L; T015 - IgE Ash, White <0.10 kU/L; T070 - IgE White Mulberry <0.10 kU/L; W001 - IgE Ragweed, Short <0.10 kU/L; W006 - IgE Mugwort <0.10 kU/L; W014 IgE Pigweed, Common <0.10 kU/L; W018 IgE Sheep Sorrel <0.10 kU/L
== END 2024-09-04 14:28 | disposition home or self-care (01) ==
LOC: HO.WFDLDS 14:27
PROVIDERS: Visit Provider Nurse Practitioner Family
DX: Z13.89 Encounter for screening for other disorder (principal)
CPT/HCPCS: 36415; 82785; 85025; 86003; 90471; 90656

== ENCOUNTER 2024-09-04 14:35 | Outpatient (AMB) | payer MEDICARE, SELFPAY ==
--- NOTE | 2024-09-04 14:51 | AM.OFFVISNUR ---
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 Office Procedures Flu Questionnaire Does the patient have a severe egg allergy?: No Does the patient have severe life threatening allergies?: No Does the patient have a fever or illness today?: No Has the patient ever had Guillain-[place] Syndrome?: No Has the patient ever had any past reaction to a flu shot?: No Assessment & Plan Assessment & Plan Orders: Orders Influenza [id number] Immunization Today Z23 - Encounter for immunization Medications: New Fluarix Triv [id number] (PF) (flu vacc [id number] 6mos up(PF)) 0.5 mL IM ONCE 0.5 mL 0RF NS Z23 - Encounter for immunization
== END 2024-09-04 15:06 | disposition home or self-care (01) ==
LOC: HO.HMCFM 14:35
PROVIDERS: PCP Physician Assistant; Visit Provider Physician Assistant
DX: Z23 Encounter for immunization (principal)

== ENCOUNTER → 2024-09-07 10:22 | Outpatient (REF) | payer MEDICARE, SELFPAY ==
--- NOTE | 2024-09-07 10:25 | CA_ITS ---
Acquisition Time: 2024-09-07 10:31:12 Total Exercise Time: 00:05:33 Test Indications: CP Medications: SEE H Protocol: RL Max HR: 116 BPM 77% of Pred: 150 BPM Max BP: 212/090 mmHG Max Work Load: 5.1 METS Exercise stress test with exercisde 5 min 33 sec of Rl stage 1 ( at 3 min the incline was increased to 12%) pt reported inability to walk at faster pace, achieving 77% MPHR, with mild sob, no chest discomfort, without arrythmia, with hypertensive response to exercise, with nondiagnostic EKG for ischemia due to suboptimal heart rate ( did not achieve 85% MPHR), however no ischemia seen at achieved workload. In recovery her BP came down to baseline. Test reviewed with Dr Sexton, If further evaluation for ischemia is needed, recommend a pharmacological nuclear stress test. She did not take her HCTZ this am. Referred By: Chante Arguello Overread By: BOYD RIVAS
== END ==
LOC: HO.CARD 10:22
PROVIDERS: PCP Physician Assistant; Visit Provider Physician Assistant
DX: R06.09 Other forms of dyspnea (principal); I10 Essential (primary) hypertension; E78.5 Hyperlipidemia, unspecified
CPT/HCPCS: 93017

== ENCOUNTER → 2024-09-07 10:25 | Outpatient (BNV) | payer MEDICARE, SELFPAY | PROVIDERS: PCP Physician Assistant; Visit Provider Nurse Practitioner Family | DX: R06.02 Shortness of breath (principal) | CPT/HCPCS: 93016; 93018 ==

== ENCOUNTER 2024-09-20 14:20 | Outpatient (AMB) | payer MEDICARE, OTHER, SELFPAY ==
--- NOTE | 2024-09-20 14:26 | A.OFFVIS_ITS ---
Vital Signs 09/20/24 14:27 Height 4 ft 10 in Weight 106 lb BMI 22.2 BP 118/74 Blood Pressure Location Rt brachial Position Sitting Intake Visit Reasons: 30 min follow up tests Allergies No Known Allergies Allergy (Verified 09/04/24 14:09) Medication List - Last Reconciled 09/20/24 by Chante Arguello PA-C aspirin 81 mg PO DAILY budesonide-formoterol 80-4.5 mcg/actuation (Symbicort) 2 puffs inhalation Q12H fluticasone propionate 110 mcg/actuation 1 puff inhalation BID NS hydrochlorothiazide 25 mg PO QAM hydroxyzine HCl 25 mg PO BEDTIME omeprazole 20 mg PO DAILY pravastatin 40 mg PO DAILY venlafaxine ER (Effexor XR) 37.5 mg PO DAILY HPI HPI 30 min follow up tests: Details: History of Present Illness The patient is a 69-year-old female presenting For a follow up PULM: she has a chronic cough. The cough has been persistent and ongoing for some time, leading to consultations with pulmonology. Initial evaluations showed normal pulmonary function tests and negative allergy tests. There is a possibility of environmental or acid reflux-related causes. The patient is currently under treatment with Symbicort, though it has not yielded significant improvement. Recent management has involved consideration of environmental triggers, and the patient is currently exploring the use of an air purifier. -The patient?s recent diagnostic imaging revealed pulmonary nodules, prompting a follow-up CAT scan scheduled for December 20. GI: She has a history of GERD and states that the omeprazole has been helpful in calming down her stomach. She has an appointment with Gastroenterology in October to discuss this and her pancreatic cyst that was incidentally noted on imaging. CV: For hypertension, the patient is on hydrochlorothiazide, 25 mg daily, wh ich is maintaining her blood pressure well. She also has hyperlipidemia, managed with pravastatin, with good tolerance to the 40 mg dosage. Psych: Her anxiety and depressive disorders are being managed with venlafaxine at 37.5 mg and hydroxyzine at bedtime, which have shown efficacy in controlling her symptoms. Uro: She has angiomyolipoma of the kidney, under surveillance, with an upcoming urology appointment in six months. Social History - The patient lives with her son in [place], while her resides in [place]. - Has grandchildren distributed in various locations, with frequent familial interactions. - She has [place] lived [place] farm, which was stressful but is no longer her primary residence. Review of Systems - Respiratory: Reports persistent cough, no shortness of breath or other respiratory complaints discussed. - Gastrointestinal: Reports satisfaction with omeprazole for GERD management. Physical Exam General: Cooperative, healthy appearing, comfortable, no acute distress and well developed Orientation: Patient oriented x3 Limitations: No limitations Head: Normal to inspection Ears: Hearing grossly normal bilaterally Nose: Normal external nose present Face and sinus: Normal facial exam Eyes: Appearance normal, both eyes and all related structures Neck: Normal visual inspection and Yes full ROM; slight muscle tenderness noted Respiratory: Normal respiratory effort and able to speak in complete sentences. Clear to auscultation bilaterally Cardiovascular: Regular rate and rhythm. Normal S1 and S2 GI: Normal to inspection. Soft to palpation and nontender Skin: No rashes or lesions noted Neuro: Patient oriented x3 Extremities: Normal to inspection; no swelling noted Results - Pulmonary function test: Normal - Allergy tests: Negative Plan - Chronic Cough: Continue monitoring with pulmonology. Use Symbicort as prescribed, reassess effectiveness, and consider environmental factors, including the use of an air purifier. - Gastroesophageal Reflux Disease: Continue omeprazole, increase to 90 capsules to ensure consistent use to help manage GERD-related symptoms and potential cough improvement. - Essential Hypertension: Maintain current dosage of hydrochlorothiazide, ensuring adequate blood pressure control. - Hyperlipidemia: Continue pravastatin at 40 mg daily. - Anxiety and Depressive Disorders: Maintain current regimen of venlafaxine and hydroxyzine, considering patient reports of effective management. - Pancreatic Cyst: Follow up with gastroenterology on November 28 for further evaluation. - Pulmonary Nodules: Repeat CAT scan scheduled for December 20 to monitor nodule status. Patient was informed and verbally consented to the use of an ambient scribe for clinic note documentation during this visit. Discussion Notes During the consultation, I reviewed the patient's current treatment regime and proposed plans for managing her chronic cough, GERD, hypertension, and mental health concerns. The potential relationship between GERD and cough was discussed, and I emphasized the importance of consistent omeprazole use. We decided to continue current therapies while monitoring their effectiveness and evaluating possible contributing factors to her cough, such as environmental allergens. Follow-up appointments with pulmonology, gastroenterology, and other specialists were highlighted for comprehensive evaluation and management of the patient?s intricate medical conditions. Additionally, the importance of completing scheduled diagnostics and imaging studies was communicated to ensure timely assessment and intervention. Patient Instructions - Continue current medications as prescribed, including Symbicort, omeprazole, hydrochlorothiazide, pravastatin, venlafaxine, and hydroxyzine. - Attend upcoming specialist appointments as scheduled, including gastroenterology on November 28, cardiology on December 02, pulmonology on October 17, and a follow-up CAT scan on December 20. - Utilize an air purifier at home to potentially alleviate environmental triggers of the cough. - Monitor for any changes in symptoms and consult if any worsening occurs. - Ensure compliance with health maintenance, including diet and lifestyle modifications for hyperlipidemia. [facility] Medical History (Updated 09/07/24 @ 14:53 by Chante Arguello PA-C) Osteoporosis Abnormal mammogram of left breast Major depressive disorder, recurrent, mild Generalized anxiety disorder Insomnia Dyslipidemia Hypertension Surgical History (Updated 02/29/24 @ 14:00 by Chante Arguello PA-C) S/P total hysterectomy Social History Housing: House Patient Tobacco Use Status: Never used Tobacco e-Cigarette/Vaping Use: Never Used Second Hand Smoke Exposure: Yes (past) service: No Current occupational status: retired Cognitive needs: No Hearing needs: No Vision needs: No Results Reviewed Results Reviewed: CT/CT chest wo IV con IMPRESSION: Bilateral pulmonary nodules measuring up to 4 mm. Right upper lobe ill-defined mixed groundglass nodules measuring up to 8 mm. According to the UPDATED 2017 Fleischner Society recommendations, the advised followup imaging for multiple subsolid nodules, the largest of which measures 6 mm or greater, is: CT at 3-6 months to confirm persistence. Subsequent management should be based on the most suspicious nodule(s). Electronically signed by: Jessi Culp MD 07/17/2024 08:02 PM EDT Laboratory Tests 03/13/24 04/12/24 06/25/24 08:54 15:32 09:01 WBC RBC Hgb Hct Plt Count Sodium 142 136 138 Potassium 3.1 L 3.3 3.7 Chloride 98 99 Carbon Dioxide 32 H 30 H Anion Gap 9 L 13 BUN 15 13 Creatinine 0.75 1.08 0.74 Estimated GFR > 60 50 > 60 Fasting Glucose 95 Folate 7.4 TSH 1.91 09/04/24 14:28 WBC 4.2 L RBC 4.87 Hgb 13.5 Hct 40.2 Plt Count 234 Sodium Potassium Chloride Carbon Dioxide Anion Gap BUN Creatinine Estimated GFR Fasting Glucose Folate TSH Assessment & Plan Assessment & Plan (1) Hypertension: Code(s): I10 - Essential (primary) hypertension Category: Medical Qualifiers: Hypertension type: primary hypertension Qualified Code(s): I10 - Essential (primary) hypertension (2) Dyslipidemia: Code(s): E78.5 - Hyperlipidemia, unspecified Category: Medical (3) Generalized anxiety disorder: Code(s): F41.1 - Generalized anxiety disorder Category: Medical (4) Major depressive disorder, recurrent, mild: Code(s): F33.0 - Major depressive disorder, recurrent, mild Category: Medical (5) Cough: Code(s): R05.9 - Cough, unspecified Category: Medical Qualifiers: Cough type: chronic Qualified Code(s): R05.3 - Chronic cough (6) GERD (gastroesophageal reflux disease): Code(s): K21.9 - Gastro-esophageal reflux disease without esophagitis Category: Medical Qualifiers: Esophagitis presence: without esophagitis Qualified Code(s): K21.9 - Gastro-esophageal reflux disease without esophagitis Plan . Orders: Orders Lipid Panel Today E78.5 - Hyperlipidemia, unspecified, F33.0 - Major depressive disorder, recurrent, mild, F41.1 - Generalized anxiety disorder, I10 - Essential (primary) hypertension, K21.9 - Gastro-esophageal reflux disease without esophagitis, R05.3 - Chronic cough TSH reflex Free T4 Today E78.5 - Hyperlipidemia, unspecified, F33.0 - Major depressive disorder, recurrent, mild, F41.1 - Generalized anxiety disorder, I10 - Essential (primary) hypertension, K21.9 - Gastro-esophageal reflux disease without esophagitis, R05.3 - Chronic cough Comprehensive [place]. Panel Fast Today E78.5 - Hyperlipidemia, unspecified, F33.0 - Major depressive disorder, recurrent, mild, F41.1 - Generalized anxiety disorder, I10 - Essential (primary) hypertension, K21.9 - Gastro-esophageal reflux disease without esophagitis, R05.3 - Chronic cough Complete Blood Count Auto Diff Today E78.5 - Hyperlipidemia, unspecified, F33.0 - Major depressive disorder, recurrent, mild, F41.1 - Generalized anxiety disorder, I10 - Essential (primary) hypertension, K21.9 - Gastro-esophageal reflux disease without esophagitis, R05.3 - Chronic cough Medications: Refilled pravastatin 40 mg PO DAILY 90 tabs 3RF omeprazole 20 mg PO DAILY 90 caps 3RF hydrochlorothiazide 25 mg PO QAM 90 tabs 3RF Coding Level of Care Code Est Pt Level 4 (49950) Complex EM visit Add On G2211 Diagnoses Primary hypertension I10 Hypertension type: primary hypertension Dyslipidemia E78.5 Generalized anxiety disorder F41.1 Major depressive disorder, recurrent, mild F33.0 Chronic cough R05.3 Cough type: chronic Gastroesophageal reflux disease without esophagitis K21.9 Esophagitis presence: without esophagitis
[2024-09-20 14:27] VITALS: BP 118/74; BMI 22.2
== END 2024-09-20 14:46 | disposition home or self-care (01) ==
PROVIDERS: PCP Physician Assistant; Visit Provider Physician Assistant
DX: I10 Essential (primary) hypertension (principal); E78.5 Hyperlipidemia, unspecified; F41.1 Generalized anxiety disorder; F33.0 Major depressive disorder, recurrent, mild; R05.3 Chronic cough; K21.9 Gastro-esophageal reflux disease without esophagitis

== ENCOUNTER → 2024-09-20 14:20 | Outpatient (BNVA) | payer MEDICARE, OTHER, SELFPAY | PROVIDERS: PCP Physician Assistant; Visit Provider Physician Assistant | DX: I10 Essential (primary) hypertension (principal); E78.5 Hyperlipidemia, unspecified; F41.1 Generalized anxiety disorder; F33.0 Major depressive disorder, recurrent, mild; R05.3 Chronic cough; K21.9 Gastro-esophageal reflux disease without esophagitis | CPT/HCPCS: 99212 ==

== ENCOUNTER 2024-10-17 13:55 | Outpatient (AMB) | payer MEDICARE, SELFPAY ==
[2024-10-17 13:58] VITALS: BP 142/76; PULSE 72; O2SAT 97; BMI 22.8
--- NOTE | 2024-10-17 13:58 | A.OFFVIS_ITS ---
Vital Signs 10/17/24 13:58 Height 4 ft 10 in Weight 109 lb 2 oz BMI 22.8 BP 142/76 H Blood Pressure Location Rt brachial Position Sitting Pulse 72 Pulse Source Pulse Oximeter Pulse Oximetry (%) 97 Oxygen Delivery Method Room Air Intake Visit Reasons: dyspnea Allergies No Known Allergies Allergy (Verified 10/17/24 14:02) HPI HPI dyspnea: Details: Mavis is a pleasant 69 year old female, never smoker, with underlying asthma, HTN, osteoporosis, anxiety and hyperlipidemia. She was started on Flovent with initial improvement in dyspnea and chest tightness however no change in cough. She was then swtiched to Symbicort however unclear improvement. During this time patient was also started on omeprazole and obtained air purifier/humidifier with notable decrease in cough, now only occasional. Today she presents to review RAST testing. She denies any visits to urgent care or hospitalizations related to respiratory distress since the last visit. [facility] Medical History (Updated 09/07/24 @ 14:53 by Chante Arguello PA-C) Osteoporosis Abnormal mammogram of left breast Major depressive disorder, recurrent, mild Generalized anxiety disorder Insomnia Dyslipidemia Hypertension Surgical History (Updated 02/29/24 @ 14:00 by Chante Arguello PA-C) S/P total hysterectomy Social History Housing: House Patient Tobacco Use Status: Never used Tobacco e-Cigarette/Vaping Use: Never Used Second Hand Smoke Exposure: Yes (past) service: No Current occupational status: retired Cognitive needs: No Hearing needs: No Vision needs: No Review of Systems Const Denies chills, Denies excessive sweating, Denies fever(s), Denies headache(s) and Denies night sweats Eyes Denies dry eyes, Denies irritation and Denies itchy eyes ENT Reports Normal hearing present, Denies headache(s), Denies nasal congestion, Denies nasal discharge and Denies sore throat Card Denies chest pain, Denies chest pain at rest, Denies chest pain with activity, Denies claudication, Denies leg edema, Denies dyspnea on exertion and Denies paroxysmal nocturnal dyspnea Resp Denies chest congestion, Reports cough, Denies excessive phlegm production, Denies pain on inspiration, Denies pain with cough, Denies dyspnea on exertion, Denies stridor and Denies wheezing Musc Denies myalgias Neuro Reports Normal hearing present and Denies headache(s) Endo Denies excessive sweating Dario/Lymph Denies lymphadenopathy Aller/Immun Denies itchy eyes, Denies seasonal rhinorrhea and Denies wheezing Physical Exam Vital Signs: Last Vital Signs Pulse 72 10/17/24 13:58 BP 142/76 H 10/17/24 13:58 Pulse Ox 97 10/17/24 13:58 Oxygen Delivery Method Room Air 10/17/24 13:58 BMI result Body Mass Index 22.8 Const General: cooperative, healthy appearing, comfortable, no acute distress, well developed and alert Orientation/consciousness: patient oriented x3 Limitations: no limitations HEENT Head: Yes normal to inspection, Yes normocephalic and Yes atraumatic Ears: hearing grossly normal bilaterally and external ears normal Eyes General: appearance normal, both eyes and all related structures Eyelids: Yes eyelids normal Sclerae: sclerae normal EOM: EOMs intact bilaterally Neck Neck: Yes normal visual inspection and Yes no lymphadenopathy Lymphatic: no lymphadenopathy noted Chest Chest palpation & inspection: normal inspection of the chest Resp Effort & Inspection: normal respiratory effort, able to speak in complete sentences, no audible wheezes, no cough, no stridor, not tachypneic, no tripod positioning and no use of accessory muscles Auscultation: clear to auscultation bilaterally Cardio Jugular venous distension: no JVD Rate: regular rate Rhythm: regular rhythm Skin Other: warm, dry General skin exam: no rashes or lesions noted Neuro General: patient oriented x3 Cranial nerves: Yes Normal hearing present Cognition (Neuro): normal cognition Gait exam (Neuro): Normal gait present Extrem General: Yes normal to inspection, Yes capillary refill normal, Yes no clubbing, cyanosis or edema and Yes no pedal edema Psych Appearance: grossly normal and well kempt Speech and movement: Normal speech and movement present and Clear speech present Affect: normal affect Attitude: cooperative Thought process: Normal thought process present Thought content: Normal thought content present Insight: Good insight present (Psych) Judgement: Good judgement present (Psych) Assessment & Plan Assessment & Plan (1) Cough: Code(s): R05.9 - Cough, unspecified Category: Medical Qualifiers: Cough type: chronic Qualified Code(s): R05.3 - Chronic cough (2) Asthma: Code(s): J45.909 - Unspecified asthma, uncomplicated Category: Medical (3) Multiple pulmonary nodules: Code(s): R91.8 - Other nonspecific abnormal finding of lung field Category: Medical Plan Reviewed RAST which was negative. Initially patient reported improvements with initiating ICS/LABA, however was also started on omeprazole around the same time. Patient has been without inhaler for the last 2+ weeks, continuing on omeprazole with overall improvement. Cough is likely related to reflux, will hold off on inhaler at this time. Patient aware if chest tightness and dyspnea recur to restart inhaler. All questions were answered and patient is in agreement of plan. Will follow up in 3- 6 months or sooner if needed. Coding Level of Care Code Est Pt Level 4 (10305) Diagnoses Chronic cough R05.3 Cough type: chronic Asthma J45.909 Multiple pulmonary nodules R91.8
== END 2024-10-17 14:17 | disposition home or self-care (01) ==
PROVIDERS: PCP Physician Assistant; Visit Provider Nurse Practitioner Family
DX: R05.3 Chronic cough (principal); J45.909 Unspecified asthma, uncomplicated; R91.8 Other nonspecific abnormal finding of lung field
CPT/HCPCS: 99214

== ENCOUNTER → 2024-10-17 13:55 | Outpatient (BNVA) | payer MEDICARE, SELFPAY | PROVIDERS: PCP Physician Assistant; Visit Provider Nurse Practitioner Family | DX: J45.909 Unspecified asthma, uncomplicated (principal); R91.8 Other nonspecific abnormal finding of lung field; R05.3 Chronic cough | CPT/HCPCS: 99212 ==

== ENCOUNTER 2024-11-28 14:15 | Outpatient (AMB) | payer MEDICARE, SELFPAY ==
--- NOTE | 2024-11-28 14:18 | A.OFFVIS_ITS ---
Vital Signs 3 11/28/24 14:31 Height 4 ft 10 in Weight 108 lb 0.424 oz BMI 22.6 BP 135/82 Blood Pressure Location Lt brachial Position Sitting Pulse 78 Intake Visit Reasons: Gerd, cyst of pancreas Intake Note: Mavis presents in the office as a new patient for GERD and a Pancreatic Cyst. CC: She states that she is here today because of acid reflux all the time. She has pains in the LLQ and it comes and goes but used to be more frequent. No irregular BM. 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 Here today with her son Rey. Patient had an emergency room visit in summer of 2023 for left-sided flank pain. Imaging done to rule out kidney stone showed a small mass from the right kidney as well as a small liver cyst. To investigate this further, patient had MRI abdomen done in 05/2024. See results below. This also picked up a cyst in the neck of the pancreas. Patient herself does not report any abdominal pain, nausea, vomiting changes in bowel habits or weight loss.. Left-sided pain has not occurred in a long time. No history of heavy alcohol use. No history of pancreatitis. No family history of pancreatic cancer. Results of the MRI as below. She is up-to-date on colonoscopy. Most recent one was done in 2021 in [place] no polyps per her report, was told her colon looked perfect . [facility] Medical History Osteoporosis Abnormal mammogram of left breast Major depressive disorder, recurrent, mild Generalized anxiety disorder Insomnia Dyslipidemia Hypertension Surgical History (Updated 11/28/24 @ 14:32 by RUBEN Lott) Hx of colonoscopy History of esophagogastroduodenoscopy (EGD) S/P total hysterectomy Social History Housing: House Patient Tobacco Use Status: Never used Tobacco e-Cigarette/Vaping Use: Never Used Second Hand Smoke Exposure: Yes (past) service: No Current occupational status: retired Cognitive needs: No Hearing needs: No Vision needs: No Review of Systems Const All systems reviewed & are unremarkable except as noted in HPI and below Physical Exam Vital Signs: Last Vital Signs Pulse 78 11/28/24 14:31 BP 135/82 11/28/24 14:31 BMI result Body Mass Index 22.6 No apparent distress Nonicteric Abdomen soft, nondistended Alert and oriented x3, normal gait Results Reviewed Results Reviewed: Assessment & Plan Assessment & Plan (1) Pancreatic cyst: Code(s): K86.2 - Cyst of pancreas Category: Medical (2) Lesion of liver less than 1 cm in diameter: Code(s): K76.9 - Liver disease, unspecified Category: Medical Plan Results of the MR reviewed with the patient. Liver cyst is benign in its not need any future follow-up. In terms of pancreas cyst, does not have any high-risk features to include intramural nodule, communication with main duct, PD dilation. Normal LFTs from 02/2024. Plan: -will repeat MRI pancreas protocol in 2 years from the previous imaging, that is summer 2025. Reminder set. -patient is aware to follow up with us after the MRI is done, p.r.n. follow-up in the meantime. Medications: Discontinued 2 budesonide-formoterol 80-4.5 mcg/actuation (Symbicort) Discontinued Reason: Patient no longer taking 2 puffs inhalation Q12H 10.2 grams 5RF fluticasone propionate 110 mcg/actuation administer with spacer Discontinued Reason: Patient no longer taking 1 puff inhalation BID 12 grams 6RF NS Coding Level of Care Code New Pt Level 4 (84131) Diagnoses Pancreatic cyst K86.2 Lesion of liver less than 1 cm in diameter K76.9
[2024-11-28 14:31] VITALS: BP 135/82; PULSE 78; BMI 22.6
== END 2024-11-28 15:01 | disposition home or self-care (01) ==
PROVIDERS: PCP Physician Assistant; Visit Provider Internal Medicine
DX: K86.2 Cyst of pancreas (principal); K76.9 Liver disease, unspecified
CPT/HCPCS: 99204

== ENCOUNTER → 2024-11-28 14:15 | Outpatient (BNVA) | payer MEDICARE, SELFPAY | PROVIDERS: PCP Physician Assistant; Visit Provider Internal Medicine | DX: K86.2 Cyst of pancreas (principal); K21.9 Gastro-esophageal reflux disease without esophagitis; K76.9 Liver disease, unspecified | CPT/HCPCS: 99202 ==

== ENCOUNTER → 2024-12-06 10:03 | Outpatient (BNV) | payer MEDICARE, SELFPAY | PROVIDERS: PCP Physician Assistant | DX: R06.02 Shortness of breath (principal); R42 Dizziness and giddiness | CPT/HCPCS: 78452; 93016; 93018 ==

== ENCOUNTER 2024-12-20 | Outpatient (REF) | payer MEDICARE, OTHER, SELFPAY | END 2024-12-20 00:01 | disposition home or self-care (01) | LOC: CF | PROVIDERS: PCP Physician Assistant; Visit Provider Physician Assistant | DX: I65.29 Occlusion and stenosis of unspecified carotid artery (principal); F33.0 Major depressive disorder, recurrent, mild; I10 Essential (primary) hypertension; Z79.899 Other long term (current) drug therapy | CPT/HCPCS: 99212 ==

== ENCOUNTER 2024-12-20 14:17 | Outpatient (AMB) | payer MEDICARE, OTHER, SELFPAY ==
--- NOTE | 2024-12-20 14:19 | A.OFFPC_ITS ---
Vital Signs 12/20/24 14:25 12/20/24 14:30 Height 4 ft 10 in Weight 112 lb 4 oz BMI 23.5 BP 156/82 H 134/90 H Blood Pressure Location Lt brachial Lt brachial Position Sitting Sitting Respiration 16 Pulse 89 Pulse Source Pulse Oximeter Pulse Oximetry (%) 98 Oxygen Delivery Method Room Air Intake Visit Reasons: f/u labs and bp Intake Note: Follow up labs and blood pressure. State Archivist Required: No Allergies No Known Allergies Allergy (Verified 12/20/24 14:20) Medication List - Last Reconciled 12/20/24 by Chante Arguello PA-C aspirin 81 mg PO DAILY hydrochlorothiazide 25 mg PO QAM hydroxyzine HCl 25 mg PO BEDTIME omeprazole 20 mg PO DAILY pravastatin 40 mg PO DAILY venlafaxine ER (Effexor XR) 37.5 mg PO DAILY Tobacco use date assessed: 12/20/24 Dental Screening Dental Screen Date: 02/29/24 HPI f/u labs and bp HPI Details The patient is a 69-year-old female presenting for a follow up PULM: she has a chronic cough that improved with the omeprazole. She did follow up with pulmnology who recommended holding the inhalers as cough is likely related to GERD. -The patient?s recent diagnostic imaging revealed pulmonary nodules, prompting a follow-up CAT scan scheduled for December. GI: She has a history of GERD and states that the omeprazole has been helpful in calming down her stomach. She had an appointment with Gastroenterology in October to discuss this and her pancreatic cyst and liver cyst that was incidentally noted on imaging. Liver cyst is benign in its not need any future follow-up. In terms of pancreas cyst, does not have any high-risk features to include intramural nodule, communication with main duct, PD dilation. Normal LFTs from 02/2024. -will repeat MRI pancreas protocol in 2 years from the previous imaging, that is summer 2025. Reminder set. -patient is aware to follow up with us a fter the MRI is done, p.r.n. follow-up in the meantime. CV: For hypertension, the patient is on hydrochlorothiazide, 25 mg daily, which is maintaining her blood pressure well exit today it was on the higher end of normal.. She also has hyperlipidemia, managed with pravastatin, with good tolerance to the 40 mg dosage. She recently had a negative cardiac workup. She does tell me today that when she was in [place] she had carotid artery stenosis. She says that this is supposed to be monitored every couple years. It was not bad enough to do anything with it at that point but she states that they told her to continue to monitor. Psych: Her anxiety and depressive disorders are being managed with venlafaxine at 37.5 mg and hydroxyzine at bedtime, which have shown efficacy in controlling her symptoms. Uro: She has angiomyolipoma of the kidney, under surveillance, with an upcoming urology appointment [facility] Medical History (Updated 12/20/24 @ 14:48 by Chante Arguello PA-C) Osteoporosis Abnormal mammogram of left breast Major depressive disorder, recurrent, mild Generalized anxiety disorder Insomnia Dyslipidemia Hypertension Surgical History (Updated 11/28/24 @ 14:32 by RUBEN Lott) Hx of colonoscopy History of esophagogastroduodenoscopy (EGD) S/P total hysterectomy Social History Housing: House Patient Tobacco Use Status: Never used Tobacco e-Cigarette/Vaping Use: Never Used Second Hand Smoke Exposure: Yes (past) service: No Current occupational status: retired Cognitive needs: No Hearing needs: No Vision needs: No Questionnaire PHQ-9 Over the last 2 weeks, how often have you been bothered by any of the following problems? 1. Little interest or pleasure in doing things: more than half the days 2. Feeling down, depressed, or hopeless: more than half the days 3. Trouble falling or staying asleep, or sleeping too much: not at all 4. Feeling tired or having little energy: not at all Source: Developed by Drs. Ludwig Erwin, Marya Taylor, Raymond Leger and colleagues, with an educational danya from [employer]. Physical exam (Primary Care) Vital Signs: Last Vital Signs Pulse 89 12/20/24 14:25 Resp 16 12/20/24 14:25 BP 156/82 H 12/20/24 14:25 Pulse Ox 98 12/20/24 14:25 Oxygen Delivery Method Room Air 12/20/24 14:25 BMI result Body Mass Index 23.5 Tobacco/Smoking Status: Tobacco use Status Tobacco use date assessed 12/20/24 12/20/24 14:21 Patient Tobacco Use Status Never used Tobacco 12/20/24 14:21 e-Cigarette/Vaping Use Never Used 12/20/24 14:21 Const Orientation/consciousness: patient oriented x3 HENMT Ears: hearing grossly normal bilaterally Neck Thyroid: Thyroid normal Lymphatic: no lymphadenopathy noted Resp Auscultation: clear to auscultation bilaterally Cardio Rate: regular rate Rhythm: regular rhythm Heart sounds: S1 normal heart sound present and S2 normal heart sound present GI Inspection: Yes normal to inspection Palpation (GI): Soft to palpation and Other GI palpation findings present (nontender, no cva tenderness) Auscultation: normoactive bowel sounds Rectal Exam - Female: deferred Skin General skin exam: no rashes or lesions noted Neuro General: patient oriented x3, gait normal and no focal motor deficits Results Reviewed Results Reviewed: NM/NM cardiolite stress test Impression: 1. Myocardial perfusion imaging study shows normal myocardial perfusion 2. Gated LVEF is 68% 3. Transient ischemic dilatation not present Coding Level of Care Code Est Pt Level 4 (23753) Complex EM visit Add On G2211 Diagnoses Carotid artery stenosis I65.29 Major depressive disorder, recurrent, mild F33.0 Primary hypertension I10 Hypertension type: primary hypertension Assessment & Plan Assessment & Plan (1) Carotid artery stenosis: Code(s): I65.29 - Occlusion and stenosis of unspecified carotid artery Category: Medical Plan: us ordered continue statin (2) Major depressive disorder, recurrent, mild: Code(s): F33.0 - Major depressive disorder, recurrent, mild Category: Medical Plan: well controlled (3) Hypertension: Code(s): I10 - Essential (primary) hypertension Category: Medical Qualifiers: Hypertension type: primary hypertension Qualified Code(s): I10 - Essential (primary) hypertension Plan: elevated above goal will check at home and let me know if still elevated will add [facility] [facility] Orders: Orders Complete Blood Count Auto Diff Today F33.0 - Major depressive disorder, recurrent, mild, I65.29 - Occlusion and stenosis of unspecified carotid artery TSH reflex Free T4 Today F33.0 - Major depressive disorder, recurrent, mild, I65.29 - Occlusion and stenosis of unspecified carotid artery US carotid duplex BI Today I65.29 - Occlusion and stenosis of unspecified carotid artery, R00.2 - Palpitations Comprehensive Met. Panel Today F33.0 - Major depressive disorder, recurrent, mild, I65.29 - Occlusion and stenosis of unspecified carotid artery
[2024-12-20 14:25] VITALS: BP 156/82; PULSE 89; RESP 16; O2SAT 98; BMI 23.5
[2024-12-20 14:30] VITALS: BP 134/90
== END 2024-12-20 14:57 | disposition home or self-care (01) ==
PROVIDERS: PCP Physician Assistant; Visit Provider Physician Assistant
DX: I65.29 Occlusion and stenosis of unspecified carotid artery (principal); F33.0 Major depressive disorder, recurrent, mild; I10 Essential (primary) hypertension

== ENCOUNTER 2025-01-09 13:02 | Outpatient (AMB) | payer MEDICARE, OTHER, SELFPAY ==
--- NOTE | 2025-01-09 13:10 | A.OFFPC_ITS ---
Vital Signs 01/09/25 13:16 Height 4 ft 10 in Weight 109 lb BMI 22.8 BP 128/72 Blood Pressure Location Lt brachial Position Sitting Respiration 14 Pulse 91 Pulse Source Pulse Oximeter Pulse Oximetry (%) 98 Oxygen Delivery Method Room Air Intake Visit Reasons: ED follow-up from 12/26 Intake Note: ER Follow up for low potassium and sodium. Records requested 01/04/2025 Director Of Recruitment And Admissions Required: No Allergies No Known Allergies Allergy (Verified 01/09/25 13:15) Medication List - Last Reconciled 01/09/25 by Chante Arguello PA-C amlodipine 5 mg PO DAILY aspirin 81 mg PO DAILY hydroxyzine HCl 25 mg PO BEDTIME pravastatin 40 mg PO DAILY venlafaxine ER (Effexor XR) 37.5 mg PO DAILY Tobacco use date assessed: 01/09/25 Fall risk assessment: 1 Fall in past year Last assessed Fall Risk: 01/09/25 Dental Screening Dental Screen Date: 02/29/24 HPI ED follow-up from 12/26 HPI Details The patient is a 69-year-old female presenting for a follow up She went to the ED on 12/25 and states that she went because she had dizziness and weakness and was diagnosed with hypokalemia and hyponatremia. It was felt to be related to the hydrochlorothiazide and her UTI that she also had. She states that they treated her for UTI for a few days and discontinue the hydrochlorothiazide and she is feeling better. We do not have the notes but requested them. PULM: she has a chronic cough that improved with the omeprazole. She did follow up with pulmnology who recommended holding the inhalers as cough is likely related to GERD. She discontinued the omeprazole following the ER visit because she was concerned it could be impacting her electrolytes. She has not noticed any change. -The patient?s recent diagnostic imaging revealed pulmonary nodules, prompting a follow-up CAT scan scheduled for December. GI: She has a history of GERD and states that the omeprazole has been helpful in calming down her stomach. She had an appointment with Gastroenterology in October to discuss this and her pancreatic cyst and liver cyst that was incidentally noted on imaging. Liver cyst is benign in its not need any future follow-up. In terms of pancreas cyst, does not have any high-risk features to include intramural nodule, communication with main duct, PD dilation. Normal LFTs from 02/2024. -will repeat MRI pancreas protocol in 2 years from the previous imaging, that is summer 2025. Reminder set. -patient is aware to follow up with us a fter the MRI is done, p.r.n. follow-up in the meantime. CV: Blood pressure today in the office is 128/72. She is on amlodipine 5 mg. This was started our last visit. Psych: Her anxiety and depressive disorders are being managed with venlafaxine at 37.5 mg and hydroxyzine at bedtime, which have shown efficacy in controlling her symptoms. Uro: She has angiomyolipoma of the kidney, under surveillance, with an upcoming urology appointment [facility] Medical History (Updated 12/20/24 @ 14:48 by Chante Arguello PA-C) Osteoporosis Abnormal mammogram of left breast Major depressive disorder, recurrent, mild Generalized anxiety disorder Insomnia Dyslipidemia Hypertension Surgical History (Updated 11/28/24 @ 14:32 by RUBEN Lott) Hx of colonoscopy History of esophagogastroduodenoscopy (EGD) S/P total hysterectomy Social History Housing: House Patient Tobacco Use Status: Never used Tobacco e-Cigarette/Vaping Use: Never Used Second Hand Smoke Exposure: Yes (past) service: No Current occupational status: retired Cognitive needs: No Hearing needs: No Vision needs: No Physical exam (Primary Care) Tobacco/Smoking Status: Tobacco use Status Tobacco use date assessed 12/20/24 01/09/25 13:10 Patient Tobacco Use Status Never used Tobacco 01/09/25 13:10 e-Cigarette/Vaping Use Never Used 01/09/25 13:10 Const Orientation/consciousness: patient oriented x3 HENMT Ears: hearing grossly normal bilaterally Neck Thyroid: Thyroid normal Lymphatic: no lymphadenopathy noted Resp Auscultation: clear to auscultation bilaterally Cardio Rate: regular rate Rhythm: regular rhythm Heart sounds: S1 normal heart sound present and S2 normal heart sound present GI Inspection: Yes normal to inspection Palpation (GI): Soft to palpation and Other GI palpation findings present (nontender, no cva tenderness) Auscultation: normoactive bowel sounds Rectal Exam - Female: deferred Skin General skin exam: no rashes or lesions noted Neuro General: patient oriented x3, gait normal and no focal motor deficits Coding Level of Care Code Est Pt Level 4 (82416) Complex EM visit Add On G2211 Diagnoses Acute cystitis without hematuria N30.00 Urinary tract infection type: acute cystitis Hematuria presence: without hematuria Hypokalemia E87.6 Primary hypertension I10 Hypertension type: primary hypertension Assessment & Plan Assessment & Plan (1) UTI (urinary tract infection): Code(s): N39.0 - Urinary tract infection, site not specified Category: Medical Qualifiers: Urinary tract infection type: acute cystitis Hematuria presence: without hematuria Qualified Code(s): N30.00 - Acute cystitis without hematuria Plan: Completed antibiotics. UA and culture ordered today. (2) Hypokalemia: Code(s): E87.6 - Hypokalemia Category: Medical Plan: Discontinued hydrochlorothiazide. We will check potassium today. She was not sent home on a potassium supplement. (3) Hypertension: Code(s): I10 - Essential (primary) hypertension Category: Medical Qualifiers: Hypertension type: primary hypertension Qualified Code(s): I10 - Essential (primary) hypertension Plan: WNL. Continue amlodipine. Patient Instructions: discontinue hctz continue amlodipine. BP is normal today check labs and urine today return in 1 month (we will repeat labs at that appointment too)
[2025-01-09 13:16] VITALS: BP 128/72; PULSE 91; RESP 14; O2SAT 98; BMI 22.8
== END 2025-01-09 13:34 | disposition home or self-care (01) ==
LOC: HO.HMCFM 13:03
PROVIDERS: PCP Physician Assistant; Visit Provider Physician Assistant
DX: N30.00 Acute cystitis without hematuria (principal); E87.6 Hypokalemia; I10 Essential (primary) hypertension

== ENCOUNTER 2025-01-09 13:44 | Outpatient (REF) | payer MEDICARE, OTHER, SELFPAY ==
--- OUTSIDE RECORDS SUMMARY | 2025-01-09 16:11 | XMS_ITS | Data Portability ---
Author Organization [place] [facility] Address [address] [place] [address] Care Team Providers Care Graduate Studies Dean Name Role Phone SAI BAHENA Primary Care Provider ANT SARAH Referring Provider Assessment No assessment recorded. Plan of Treatment Reminders Order Date Submit Date Provider Last Modified By Organization Details Last Modified Time Details Appointments None recorded. Lab None recorded. Referral None recorded. Procedures sinusoidal vertical axis rotational testing (PROC) [address] Office, [address], [address], [place], [address], 0 13:10:40 canalith repositioni ng procedure (PROC) [address] Office, [address], [address], [place], [address], 0 13:11:14 Surgeries None recorded. Imaging None recorded. Medication Orders None recorded. Patient TargetsNo targets recorded. Patient InstructionsNo instructions recorded. Reason for Referral None Reported. Results Created Date Observation Date Name Description Value Unit Range Abnormal Flag Note LastModifiedBy Organization Detail LastModifiedTime 04/10/20 20 04/16/2020 canal ith repos ition ing proce dure (PROC ) Unknown Analyte normal Not Available [facility] Office [address], [place], [address], 04/10/2020 11:47:35 04/10/20 20 04/16/2020 canal ith repos ition ing proce dure (PROC ) Unknown Analyte negati ve Not Available [facility] Office [address], [place], [address], 04/10/2020 11:47:35 04/10/20 20 04/16/2020 canal ith repos ition ing proce dure (PROC ) Unknown Analyte abnorm al Not Available [facility] Office [address], [place], [address], 04/10/2020 11:47:35 04/10/2004/16/2020 canal ith repos ition ing proce dure (PROC ) Unknown Analyte Positi ve right subcli nical PC-BPP V. Negati ve left PC-BPP V. Not Available [facility] Office [address], [place], [address], 04/10/2020 11:47:35 04/10/20 20 04/16/2020 canal ith repos ition ing proce dure (PROC ) Unknown Analyte normal Not Available [facility] Office [address], [place], [address], 04/10/2020 11:47:35 04/10/2004/16/2020 sinus oidal verti son axis rotat ional testi ng (PROC ) Unknown Analyte normal Not Available [facility] Office [address], [place], [address], 04/10/2020 11:46:42 04/09/2003/19/2020 CT, tempo ral bone, w/o contr ast No observ ation [facility] ed. [email or web address] [address] [place] [address], [id number], 04/30/2020 14:43:39 Result Notes None recorded. Procedures Surgical History None recorded. Imaging Results Imaging Date Name Status LastModified by Organiz ation Details LastModified Time 03/19/2020 CT, temporal bone, w/o contrast [email or web address] [address] [place] [address], [id number], 04/30/2020 14:43:39 Procedure Notes None recorded. Medical Equipment None Reported. Medications Name Sig Start Date Stop Date Status Note LastModified by Organization Details LastModified Time acetic acid 2 % ear solution active Not Available Not Available Not Available prednisone 20 mg tablet active Not Available Not Available Not Available alendronate 70 mg tablet active Not Available Not Available Not Available meclizine 25 mg tablet active Not Available Not Available Not Available clotrimazole 1 % topical solution active Not Available Not Avail able Not Available hydrochlorothiazide 12.5 mg capsule active Not Available Not Availa ble Not Available fluticasone propionate 50 mcg/actuation nasal spray,suspension active Not Available Not Avail able Not Available bupropion HCl XL 300 mg 24 hr tablet, extended release active Not Available Not Available Not Available bupropion HCl XL 150 mg 24 hr tablet, extended release active Not Available Not Available Not Available Vitals None Recorded Social History None recorded. Functional Status None recorded. Mental Status None recorded. Family History Nothing Reported. Medical History Condition Response Anxiety Disorder Y Hypertension Y Depression Y Gynecological HistoryNo gynecological history recorded. Obstetrics History GPAL:G 0 P 0 0 0 0 Past Encounters Encounter ID Performer Location Encounter Start Date Encounter Closed Date Diagnosis/Indication Diagnosis SNOMED-CT Code Diagnosis ICD10 Code Diagnosis Note [id number] [address] [place] [address] 04/10/2020 10:51:38 04/10/2020 12:19:33 Benign paroxysmal positional vertigo [id number] H81.11 Today's findings suggest subclinica l {{right* l eft bilate ral}} {{posterio r* anterio r horizont al}} canal benign paroxysmal positional vertigo (BPPV) as evidence by transient, subjective vertigo, with no correspond ing nystagmus, in {{right* l eft }} {{Hallpike * position al}} testing. As such, {{Sarah Reposition ing (GRM) Semo nt Liberatory (SLM) full y supported Canalith reposition ing modifi ed Canalith Reposition ing (mCRM)* Ho rizontal Hybrid (HHM) Appi ani Casani Gufoni BB Q Roll}} maneuvers were completed today. This was tolerated {{well* po jordana with nausea poo rly with nausea & emesis steven rly well with some fatigue}}. Post-treat ment {{Hallpike s* positio nal tests}} were negative for any subjective vertigo suggesting treatment efficacy. The nature and pathophysi ology of BPPV was explained in both written and verbal format to the {{patient* patient and family car egiver pat ient and caregiver} } with good understand ing. Other than BPPV, today's findings are negative for any active or acute peripheral vestibular involvemen t as best can be determined within the scope and limitation s of the testing procedures . This is supported by the absence of pathologic al nystagmus in any sub-test, and symmetrica l and robust labyrinthi ne reactivity with {{caloric kinetic rotary chair*}} testing. This suggests a non-labyri nthine etiology to the patient's reported symptoms. Health Concerns Section Related Observation LastModified by Organization Detai ls LastModified Time None Recorded Concern Status LastModified by Organization Details LastModified Time None Recorded Advance Directives Directive None Recorded Payers Encounter Date Sequence Insurance Name Policy Number Policy Choudhary Covered Member ID Choudhary Member ID Guarantor Name 04/10/2020 1 [place] Mavis Hughes [id number] Mavis Hughes 04/10/2020 2 [employer] - FOR LIFE (SECONDARY TO MEDICARE) Juliocesar Hughes [id number] Mavis Hughes Notes Date Note Type Note Provider Name and Address Organization Details Recorded Time 04/10/2020 text/html Patient {{presents* return s}} to our {{[place] facility with a primary concern of vertigo. Patient was previously seen on 04/07/2020 via [facility] services with findings suggestive of bilateral sub-clinical PC-BPPV. Patient reports intermittent episodes of vertigo provoked by vertical changes in head pitch began years ago, but has increased in severity two weeks ago. Patient reports a decrease in balance since vertigo began. She reports history of migraine with visual aura and phonophobia. Patient notes aural fullness bilaterally, which began two weeks ago. Patient denies history of falls or sudden changes in hearing at this time. Tracey Yanes, AUD [address], [place], [address], [facility] [place] [facility] 04/17/2020 09:40:57 OBGyn Episode No OBEpisode recorded.
[2025-01-09 18:15] LABS: MANUAL DIFF FLAG NO
[2025-01-09 18:26] LABS: Basophils Absolute Auto 0.1 X10*3/uL (0.0-0.2); Basophils Percent Auto 1.2 % (0-2); Eosinophils Absolute Auto 0.1 X10*3/uL (0.0-0.4); Hematocrit 40.1 % (37.0-47.0); Hemoglobin 13.1 g/dl (12.0-16.0); Imm Gran Abs Auto 0.03 X10*3/uL (0.00-0.03); Imm Gran Pct Auto 0.5 % (0.0-0.4); Lymphocytes Absolute Auto 1.2 X10*3/uL (1.2-4.9); Lymphocytes Percent Auto 18.2 % (20-40); Mean Corpuscular HGB Conc 32.7 g/dl (31.0-35.0); Mean Corpuscular Hemoglobin 27.1 pg (27.0-33.0); Mean Corpuscular Volume 82.9 fL (80.0-98.0); Mean Platelet Volume 9.2 fL (9.4-12.3); Monocytes Absolute Auto 0.5 X10*3/uL (0.1-1.2); Monocytes Percent Auto 7.2 % (2-11); Neutrophils Absolute Auto 4.7 x10*3/uL (2.0-8.3); Neutrophils Percent Auto 70.9 % (45-73); Platelet Count 384 X10*3/uL (160-400); Red Blood Count 4.84 X10*6/uL (4.20-5.50); Red Cell Distribution Width 12.9 % (11.0-16.0); White Blood Count 6.7 X10*3/uL (4.8-10.8)
[2025-01-09 18:34] LABS: Appearance Urine Clear; Color Urine Yellow; Glucose Urine UA Negative (Negative); Leukocyte Esterase Urine Negative (Negative); Nitrite Urine Negative (Negative); PH 6.5 (5.0-9.0); Urine Blood Negative (Negative); Urine Ketones Negative (Negative); Urine Protein Negative (Neg-Trace)
[2025-01-09 18:48] LABS: Alanine Aminotransferase 40 U/L (0-31); Albumin Level 4.3 g/dL (3.5-5.0); Alkaline Phosphatase 142 U/L (39-117); Anion Gap 12 (12-20); Aspartate Amino Transferase 30 U/L (5-31); Bilirubin Total 0.5 mg/dL (0.0-1.0); Blood Urea Nitrogen 12 mg/dL (9-16); Calcium 9.3 mg/dL (8.4-10.2); Carbon Dioxide 25 mmol/L (22-29); Chloride 106 mmol/L (96-108); Estimated Glomerular Filt Rate > 60; Glucose Random 87 mg/dL (60-115); Sodium 139 mmol/L (135-145); Total Protein 8.1 g/dL (6.5-8.0)
[2025-01-09 19:06] LABS: TSH reflex Free T4 2.01 uIU/mL (0.32-4.0)
== END 2025-01-09 13:45 | disposition home or self-care (01) ==
LOC: HO.WFDLDS 13:44
PROVIDERS: Visit Provider Physician Assistant
DX: I65.29 Occlusion and stenosis of unspecified carotid artery (principal); F33.0 Major depressive disorder, recurrent, mild; N30.00 Acute cystitis without hematuria; E87.6 Hypokalemia; I10 Essential (primary) hypertension
CPT/HCPCS: 36415; 80053; 81003; 84443; 85025; 99212

== ENCOUNTER 2025-01-24 15:57 | Outpatient (REF) | payer MEDICARE, OTHER, SELFPAY ==
--- NOTE | ~2025-01-24 | CT_ITS ---
CLINICAL HISTORY: R91.1 - Solitary pulmonary nodule CT chest without contrast Comparison: None Findings: There are juxtapleural areas of streaky density and subtle nodularity. There is a ground-glass juxtapleural pulmonary nodule in the posterior aspect of the right upper lobe measuring 5 mm in size. No dense areas of consolidation. No pleural effusion or pneumothorax. No enlarged lymph nodes. Moderate vascular calcification of the thoracic aorta. Overall heart size is within normal limits. No free fluid or free air within the upper abdomen. Gallbladder is surgically absent. No acute bony lesions. IMPRESSION: Juxtapleural areas of likely scarring or atelectasis. Single 5 mm juxtapleural right upper lobe pulmonary nodule. Follow up according to the Fleischner society guidelines suggested. This document has been electronically signed by: Darwin Gonzales MD on 01/25/2025 11:08:52
--- OUTSIDE RECORDS SUMMARY | 2025-01-24 19:18 | XMS_ITS | Data Portability ---
Author Organization [place] - [facility] [place] [facility], [place] Address [address] [place] [address] Care Team Providers Care Manager Field Service Name Role Phone SAI BAHENA Primary Care Provider ANT SARAH Referring Provider [phone] Assessment No assessment recorded. Plan of Treatment Reminders Order Date Submit Date Provider Last Modified By Organization Details Last Modified Time Details Appointments None recorded. Lab None recorded. Referral None recorded. Procedures sinusoidal vertical axis rotational testing (PROC) [address] Office, [address], [address], [place], [address], 0 13:10:40 canalith repositioni ng procedure (PROC) [address] Office, [address], [address], [place], [address], 0 13:11:14 Surgeries None recorded. Imaging None recorded. Medication Orders None recorded. Patient TargetsNo targets recorded. Patient InstructionsNo instructions recorded. Reason for Referral None Reported. Results Created Date Observation Date Name Description Value Unit Range Abnormal Flag Note LastModifiedBy Organization Detail LastModifiedTime 04/10/20 20 04/16/2020 canal ith repos ition ing proce dure (PROC ) Unknown Analyte normal Not Available [facility] Office [address], [place], [address], 04/10/2020 11:47:35 04/10/20 20 04/16/2020 canal ith repos ition ing proce dure (PROC ) Unknown Analyte negati ve Not Available [facility] Office [address], [place], [address], 04/10/2020 11:47:35 04/10/20 20 04/16/2020 canal ith repos ition ing proce dure (PROC ) Unknown Analyte abnorm al Not Available [facility] Office [address], [place], [address], 04/10/2020 11:47:35 04/10/2004/16/2020 canal ith repos ition ing proce dure (PROC ) Unknown Analyte Positi ve right subcli nical PC-BPP V. Negati ve left PC-BPP V. Not Available [facility] Office [address], [place], [address], 04/10/2020 11:47:35 04/10/20 20 04/16/2020 canal ith repos ition ing proce dure (PROC ) Unknown Analyte normal Not Available [facility] Office [address], [place], [address], 04/10/2020 11:47:35 04/10/2004/16/2020 sinus oidal verti son axis rotat ional testi ng (PROC ) Unknown Analyte normal Not Available [facility] Office [address], [place], [address], 04/10/2020 11:46:42 04/09/2003/19/2020 CT, tempo ral bone, w/o contr ast No observ ation record ed. [facility] [address] [place] [address], [address], 04/30/2020 14:43:39 Result Notes None recorded. Procedures Surgical History None recorded. Imaging Results Imaging Date Name Status LastModified by Organiz ation Details LastModified Time 03/19/2020 CT, temporal bone, w/o contrast [facility] [address] [place] [address], [address], 04/30/2020 14:43:39 Procedure Notes None recorded. Medical [...] Diagnosis ICD10 Code Diagnosis Note 185 [facility] [address] [place] [address] 04/10/2020 10:51:38 04/10/2020 12:19:33 Benign paroxysmal positional vertigo [id number] H81.11 Today's findings suggest subclinica l {{right* [...] Name 04/10/2020 1 [place] Mavis Hughes [id number] Mavis Hughes 04/10/2020 2 WPS - FOR LIFE (SECONDARY TO MEDICARE) Juliocesar Hughes [id number] Mavis Hughes Notes Date Note Type Note Provider Name and Address Organization Details Recorded Time 04/10/2020 text/html Patient {{presents* return s}} to our {{[place]* [place] }} facility with a primary concern of [...] Yanes, AUD [address], [place], [address], [facility] - [place] [place] [facility] 04/17/2020 09:40:57 OBGyn Episode No OBEpisode recorded.
== END 2025-01-24 15:58 | disposition home or self-care (01) ==
LOC: HO.CT 15:57
PROVIDERS: PCP Physician Assistant; Visit Provider Nurse Practitioner Family
DX: R91.1 Solitary pulmonary nodule (principal)
CPT/HCPCS: 71250

== ENCOUNTER → 2025-01-24 15:59 | Outpatient (BNV) | payer MEDICARE, OTHER, SELFPAY | PROVIDERS: PCP Physician Assistant; Visit Provider Radiology Diagnostic Radiology | DX: R91.1 Solitary pulmonary nodule (principal) | CPT/HCPCS: 71250 ==

== ENCOUNTER 2025-01-30 14:43 | Outpatient (REF) | payer MEDICARE, OTHER, SELFPAY ==
--- NOTE | ~2025-01-30 | US_ITS ---
EXAMINATION: BILATERAL CAROTID ULTRASOUND WITH DOPPLER HISTORY: R00.2 - OCCLUSION AND STENOSIS OF UNSPECIFIED CAROTID ARTERY COMPARISON: There are no prior studies for comparison. TECHNIQUE: Real time and Color and Spectral doppler ultrasonography of the carotid and vertebral arteries was performed in multiple planes. FINDINGS: There is mild plaque in both carotid bulbs. VERTEBRAL FLOW DIRECTION: Antegrade bilaterally. PEAK SYSTOLIC VELOCITIES (in cm/sec): RIGHT: CCA: Prox: 63.4 Dist: 58.8 ICA: Prox: 76.3 Mid: 82.9 Dist: 66.4 ICA/CCA Ratio: 1.31 ECA: 69.4 Peak ICA EDV: 29.6 LEFT: CCA: Prox: 70.7 Dist: 60.0 ICA: Prox: 59.7 Mid: 92.6 Dist: 99.4 ICA/CCA Ratio: 1.41 ECA: 65.0 Peak ICA EDV: 39.1 US/US carotid duplex BI IMPRESSION: Findings consistent with 0-49% stenosis of the bilateral internal carotid arteries. Electronically signed by: Ludwig Delarosa MD 01/31/2025 07:04 AM EDT
--- OUTSIDE RECORDS SUMMARY | 2025-01-30 17:19 | XMS_ITS | Data Portability ---
Author Organization [place] - [facility] [place] [facility], [place] Address [address] [place] [address] Care Team Providers Care Rock Star Name Role Phone SAI BAHENA Primary Care Provider ANT SARAH Referring Provider Assessment No assessment recorded. Plan of Treatment Reminders Order Date Submit Date Provider Last Modified By Organization Details Last Modified Time Details Appointments None recorded. Lab None recorded. Referral None recorded. Procedures sinusoidal vertical axis rotational testing (PROC) [address] Office, [address], [address], [place], [address], 0 13:10:40 canalith repositioni ng procedure (PROC) [address] Office, [address], [address], [place], [address], 0 13:11:14 Surgeries None recorded. Imaging None recorded. Medication Orders None recorded. Patient TargetsNo targets recorded. Patient InstructionsNo instructions recorded. Reason for Referral None Reported. Results Created Date Observation Date Name Description Value Unit Range Abnormal Flag Note LastModifiedBy Organization Detail LastModifiedTime 04/10/20 20 04/16/2020 canal ith repos ition ing proce dure (PROC ) Unknown Analyte normal Not Available [facility] Office [address], [place], [address], 04/10/2020 11:47:35 04/10/20 20 04/16/2020 canal ith repos ition ing proce dure (PROC ) Unknown Analyte negati ve Not Available [facility] Office [address], [place], [address], 04/10/2020 11:47:35 04/10/20 20 04/16/2020 canal ith repos ition ing proce dure (PROC ) Unknown Analyte abnorm al Not Available [facility] Office [address], [place], [address], 04/10/2020 11:47:35 04/10/2004/16/2020 canal ith repos ition ing proce dure (PROC ) Unknown Analyte Positi ve right subcli nical PC-BPP V. Negati ve left PC-BPP V. Not Available [facility] Office [address], [place], [address], 04/10/2020 11:47:35 04/10/20 20 04/16/2020 canal ith repos ition ing proce dure (PROC ) Unknown Analyte normal Not Available [facility] Office [address], [place], [address], 04/10/2020 11:47:35 04/10/2004/16/2020 sinus oidal verti son axis rotat ional testi ng (PROC ) Unknown Analyte normal Not Available [facility] Office [address], [place], [address], 04/10/2020 11:46:42 04/09/2003/19/2020 CT, tempo ral bone, w/o contr ast No observ ation record ed. [facility] [address] [place] [address], [address], 04/30/2020 14:43:39 Result Notes None recorded. Procedures Surgical History None recorded. Imaging Results Imaging Date Name Status LastModified by Organiz ation Details LastModified Time 03/19/2020 CT, temporal bone, w/o contrast [facility] [address] [place] [address], [address], 04/30/2020 14:43:39 Procedure Notes None recorded. Medical [...] Diagnosis ICD10 Code Diagnosis Note 185 [facility] [address] [place] [address] 04/10/2020 10:51:38 04/10/2020 12:19:33 Benign paroxysmal positional vertigo [id number] H81.11 Today's findings suggest subclinica l {{right* l eft bilate ral}} {{posterio r* anterio r horizont al}} canal benign paroxysmal positional vertigo (BPPV) as evidence by transient, subjective vertigo, with no correspond ing nystagmus, in {{right* l eft }} {{Hallpike * position al}} testing. As such, {{[place] Reposition ing (GRM) Semo nt Liberatory (SLM) [...] Name 04/10/2020 1 [place] Mavis Hughes [id number] Mavis Hughes 04/10/2020 2 WPS - FOR LIFE (SECONDARY TO MEDICARE) Juliocesar Hughes [id number] Mavis Hughes Notes Date Note Type Note Provider Name and Address Organization Details Recorded Time 04/10/2020 text/html Patient {{presents* return s}} to our {{[place]* [place] }} facility with a primary concern of [...] Yanes, AUD [address], [place], [address], [facility] - [place] [facility] 04/17/2020 09:40:57 OBGyn Episode No OBEpisode recorded.
== END 2025-01-30 14:44 | disposition home or self-care (01) ==
LOC: HO.US 14:43
PROVIDERS: PCP Physician Assistant; Visit Provider Physician Assistant
DX: R00.2 Palpitations (principal); I65.23 Occlusion and stenosis of bilateral carotid arteries
CPT/HCPCS: 93880

== ENCOUNTER → 2025-01-30 14:44 | Outpatient (BNV) | payer MEDICARE, OTHER, SELFPAY | PROVIDERS: PCP Physician Assistant; Visit Provider Radiology Diagnostic Radiology | DX: I65.29 Occlusion and stenosis of unspecified carotid artery (principal) | CPT/HCPCS: 93880 ==

== ENCOUNTER 2025-02-13 15:05 | Outpatient (AMB) | payer MEDICARE, OTHER, SELFPAY ==
--- NOTE | 2025-02-13 15:16 | MHC.PC.OV ---
Vital Signs 02/13/25 15:18 Height 4 ft 10 in Weight 112 lb 2 oz BMI 23.4 BP 122/72 Blood Pressure Location Lt brachial Position Sitting Respiration 12 Pulse 76 Pulse Source Pulse Oximeter Pulse Oximetry (%) 97 Oxygen Delivery Method Room Air Intake Visit Reasons: bp Intake Note: Blood pressure follow. Personal Support Worker Required: No Accompanied by: Son Allergies No Known Allergies Allergy (Verified 01/09/25 13:15) Medication List - Last Reconciled 02/13/25 by Chante Arguello PA-C amlodipine 5 mg PO DAILY aspirin 81 mg PO DAILY hydroxyzine HCl 25 mg PO BEDTIME levocetirizine (Xyzal) 5 mg PO QPM pravastatin 40 mg PO DAILY venlafaxine ER (Effexor XR) 37.5 mg PO DAILY Tobacco use date assessed: 02/13/25 Fall risk assessment: No Falls in past year Last assessed Fall Risk: 02/13/25 Dental Screening Dental Screen Date: 02/29/24 HPI bp HPI Details The patient is a 69-year-old female presenting for a follow up PULM: she has a chronic cough that improved with an antihistamine but not omeprazole. She discontinued the omeprazole. She did follow up with pulmnology who recommended holding the inhalers as cough is likely related to GERD. -The patient?s recent diagnostic imaging revealed pulmonary nodules, prompting a follow-up CAT scan scheduled for December. GI: She is following with Gastroenterology for her pancreatic cyst and liver cyst that was incidentally noted on imaging. Liver cyst is benign in its not need any future follow-up. In terms of pancreas cyst, does not have any high-risk features to include intramural nodule, communication with main duct, PD dilation. Normal LFTs from 02/2024. -will repeat MRI pancreas protocol in 2 years from the previous imaging, that is summer 2025. Reminder set. -patient is aware to follow up with us after the MRI is done, p.r.n. follow-up in the meantime. CV: Blood pressure today in the office is 122/72. She is on amlodipine 5 mg. This was started our last visit. Tolerating the pravastatin 40 mg. Psych: Her anxiety and depressive disorders are being managed with venlafaxine at 37.5 mg and hydroxyzine at bedtime, which have shown efficacy in controlling her symptoms. Uro: She has angiomyolipoma of the kidney, under surveillance, with an upcoming urology appointment [facility] Medical History (Updated 12/20/24 @ 14:48 by Chante Arguello PA-C) Osteoporosis Abnormal mammogram of left breast Major depressive disorder, recurrent, mild Generalized anxiety disorder Insomnia Dyslipidemia Hypertension Surgical History Hx of colonoscopy History of esophagogastroduodenoscopy (EGD) S/P total hysterectomy Social History (Updated 02/13/25 @ 15:20 by Shannan Silverio CMA) Housing: House Alcohol intake: never Patient Tobacco Use Status: Never used Tobacco e-Cigarette/Vaping Use: Never Used Second Hand Smoke Exposure: Yes (past) service: No Current occupational status: retired Cognitive needs: No Hearing needs: No Vision needs: No Questionnaire PHQ-9 Over the last 2 weeks, how often have you been bothered by any of the following problems? 1. Little interest or pleasure in doing things: not at all 2. Feeling down, depressed, or hopeless: not at all 3. Trouble falling or staying asleep, or sleeping too much: not at all 4. Feeling tired or having little energy: not at all 5. Poor appetite or overeating: not at all 6. Feeling bad about yourself - or that you are a failure or have let yourself or your family down: nearly every day 7. Trouble concentrating on things, such as reading the newspaper or watching television: not at all 8. Moving or speaking so slowly that other people could have noticed. Or the opposite - being so fidgety or restless that you have been moving around a lot more than usual: not at all 9. Thoughts that you would be better off or of hurting yourself in some way: not at all Total score: 3 Depression Screening Interpretation: Positive Depression Screening Follow-up: Existing condition and In treatment Depression Screening Done: Yes 51401 - PHQ-9 Billing: Yes Source: Developed by Drs. Ludwig Erwin, Marya Taylor, Raymond Leger and colleagues, with an educational danya from [employer]. Thrive Questionnaire Date Thrive assessed: 02/13/25 I am a: Patient What is your living situation today?: I have a steady place to live THRIVE Score: 0 AUDIT C Alcohol Use Questionnaire (AUDIT-C) 1. How often do you have a drink containing alcohol?: Never 3. How often do you have six or more drinks on one occasion?: Never Total Score: 0 Score Reviewed/Action Taken: Yes Physical exam (Primary Care) Vital Signs: Last Vital Signs Pulse 76 02/13/25 15:18 Resp 12 02/13/25 15:18 BP 122/72 02/13/25 15:18 Pulse Ox 97 02/13/25 15:18 Oxygen Delivery Method Room Air 02/13/25 15:18 BMI result Body Mass Index 23.4 Tobacco/Smoking Status: Tobacco use Status Tobacco use date assessed 02/13/25 02/13/25 15:17 Patient Tobacco Use Status Never used Tobacco 02/13/25 15:20 e-Cigarette/Vaping Use Never Used 02/13/25 15:20 Depression Screening Interpretation: Positive Depression Screening Follow-up: Existing condition and In treatment Thrive Assessment: Date of Thrive Assessment Date Thrive assessed 02/13/25 02/13/25 15:17 Const Orientation/consciousness: patient oriented x3 HENMT Ears: hearing grossly normal bilaterally Neck Thyroid: Thyroid normal Lymphatic: no lymphadenopathy noted Resp Auscultation: clear to auscultation bilaterally Cardio Rate: regular rate Rhythm: regular rhythm Heart sounds: S1 normal heart sound present and S2 normal heart sound present GI Inspection: Yes normal to inspection Palpation (GI): Soft to palpation and Other GI palpation findings present (nontender, no cva tenderness) Auscultation: normoactive bowel sounds Rectal Exam - Female: deferred Skin General skin exam: no rashes or lesions noted Neuro General: patient oriented x3, gait normal and no focal motor deficits Coding Level of Care Code Est Pt Level 4 (11470) Complex EM visit Add On G2211 Diagnoses Chronic cough R05.3 Cough type: chronic Hypokalemia E87.6 Primary hypertension I10 Hypertension type: primary hypertension Dyslipidemia E78.5 Additional Codes PHQ-9 - 33948 - PHQ-9 Billing: Yes ([id number]) Assessment & Plan Assessment & Plan (1) Cough: Code(s): R05.9 - Cough, unspecified Category: Medical Qualifiers: Cough type: chronic Qualified Code(s): R05.3 - Chronic cough Plan: We will switch from [facility] to [facility] as she feels like it could be better especially with the season change. I have referred her to Allergy and immunology. (2) Hypokalemia: Code(s): E87.6 - Hypokalemia Category: Medical Plan: Resolved with discontinuation of hydrochlorothiazide (3) Hypertension: Code(s): I10 - Essential (primary) hypertension Category: Medical Qualifiers: Hypertension type: primary hypertension Qualified Code(s): I10 - Essential (primary) hypertension Plan: Currently well-controlled with amlodipine. (4) Dyslipidemia: Code(s): E78.5 - Hyperlipidemia, unspecified Category: Medical Plan: Continue pravastatin. We will monitor lipids and LFTs. Orders: Referrals Allergy & Immunology Referral R05.3 - Chronic cough Medications: New levocetirizine (Xyzal) 5 mg PO QPM 90 tabs 2RF
[2025-02-13 15:18] VITALS: BP 122/72; PULSE 76; RESP 12; O2SAT 97; BMI 23.4
--- OUTSIDE RECORDS SUMMARY | 2025-02-13 17:43 | XMS_ITS | Data Portability ---
Author Organization [place] [facility], [place] Address [address] [place] [address] Care Team Providers Care Electrical Technology Instructor Name Role Phone SAI BAHENA Primary Care Provider ANT SARAH Referring Provider Assessment No assessment recorded. Plan of Treatment Reminders Order Date Submit Date Provider Last Modified By Organization Details Last Modified Time Details Appointments None recorded. Lab None recorded. Referral None recorded. Procedures sinusoidal vertical axis rotational testing (PROC) [address] Office, [address], [place], [address], 0 13:10:40 canalith repositioni ng procedure (PROC) [address] Office, [address], [place], [address], 0 13:11:14 Surgeries None recorded. Imaging None recorded. Medication Orders None recorded. Patient TargetsNo targets recorded. Patient InstructionsNo instructions recorded. Reason for Referral None Reported. Results Created Date Observation Date Name Description Value Unit Range Abnormal Flag Note LastModifiedBy Organization Detail LastModifiedTime 04/10/20 20 04/16/2020 canal ith repos ition ing proce dure (PROC ) Unknown Analyte normal Not Available [facility] Office [address], [place], [address], 04/10/2020 11:47:35 04/10/20 20 04/16/2020 canal ith repos ition ing proce dure (PROC ) Unknown Analyte negati ve Not Available [facility] Office [address], [place], [address], 04/10/2020 11:47:35 04/10/20 20 04/16/2020 canal ith repos ition ing proce dure (PROC ) Unknown Analyte abnorm al Not Available [facility] Office [address], [place], [address], 04/10/2020 11:47:35 04/10/2004/16/2020 canal ith repos ition ing proce dure (PROC ) Unknown Analyte Positi ve right subcli nical PC-BPP V. Negati ve left PC-BPP V. Not Available [facility] Office [address], [place], [address], 04/10/2020 11:47:35 04/10/20 20 04/16/2020 canal ith repos ition ing proce dure (PROC ) Unknown Analyte normal Not Available [facility] Office [address], [place], [address], 04/10/2020 11:47:35 04/10/2004/16/2020 sinus oidal verti son axis rotat ional testi ng (PROC ) Unknown Analyte normal Not Available [facility] Office [address], [place], [address], 04/10/2020 11:46:42 04/09/2003/19/2020 CT, tempo ral bone, w/o contr ast No observ ation record ed. [facility] [address] [place] [address], [address], 04/30/2020 14:43:39 Result Notes None recorded. Procedures Surgical History None recorded. Imaging Results Imaging Date Name Status LastModified by Organiz ation Details LastModified Time 03/19/2020 CT, temporal bone, w/o contrast [facility] [address] [place] [address], [address], 04/30/2020 14:43:39 Procedure Notes None recorded. Medical [...] Code Diagnosis Note 185 [facility] [address] [place] [address] 04/10/2020 10:51:38 04/10/2020 12:19:33 Benign paroxysmal positional vertigo [id number] H81.11 Today's findings suggest subclinica l {{right* [...] Name 04/10/2020 1 [place] Mavis Hughes [id number] Mavis Hughes 04/10/2020 2 WPS - FOR LIFE (SECONDARY TO MEDICARE) Juliocesar Hughes [id number] Mavis Hughes Notes Date Note Type Note Provider Name and Address Organization Details Recorded Time 04/10/2020 text/html Patient {{presents* return s}} to our {{[place]* [facility] }} facility with a primary concern of [...] Yanes, AUD [address], [place], [address], [facility] - [place] [facility] 04/17/2020 09:40:57 OBGyn Episode No OBEpisode recorded.
== END 2025-02-13 15:39 | disposition home or self-care (01) ==
LOC: HO.HMCFM 15:05
PROVIDERS: PCP Physician Assistant; Visit Provider Physician Assistant
DX: R05.3 Chronic cough (principal); E87.6 Hypokalemia; I10 Essential (primary) hypertension; E78.5 Hyperlipidemia, unspecified

== ENCOUNTER → 2025-02-13 15:05 | Outpatient (BNVA) | payer MEDICARE, OTHER, SELFPAY | PROVIDERS: PCP Physician Assistant; Visit Provider Physician Assistant | DX: R05.3 Chronic cough (principal); E87.6 Hypokalemia; I10 Essential (primary) hypertension; E78.5 Hyperlipidemia, unspecified; Z79.899 Other long term (current) drug therapy | CPT/HCPCS: 96127; 99212 ==

== ENCOUNTER 2025-04-04 09:14 | Outpatient (AMB) | payer MEDICARE, OTHER, SELFPAY ==
--- NOTE | 2025-04-04 09:25 | MHC.PC.OV ---
Vital Signs 04/04/25 09:27 Height 4 ft 10 in Weight 111 lb 2 oz BMI 23.2 BP 108/74 Blood Pressure Location Rt brachial Position Sitting Respiration 12 Pulse 67 Pulse Source Pulse Oximeter Pulse Oximetry (%) 97 Oxygen Delivery Method Room Air Intake Visit Reasons: Is having Eye surgery on 04/08 Intake Note: Pre op surgery for bilateral cataracts. Pt will call back with providers name. Insurance Sales Manager Required: No Allergies No Known Allergies Allergy (Verified 04/04/25 09:27) Tobacco use date assessed: 04/04/25 Fall risk assessment: 1 Fall in past year Last assessed Fall Risk: 04/04/25 Dental Screening Dental Screen Date: 04/04/25 Did you have a dental visit in the last 12 months?: No Did you have a dental problem in the last 6 months where you did not have access to dental care?: No Was dental information given to patient?: Patient has dentist HPI Is having Eye surgery on 04/08 HPI Details Patient is a 69-year-old female with a significant past medical history of hypertension, hyperlipidemia, anxiety, depression and insomnia presenting today for preop clearance for cataract surgery. She states that she is having the right eye treated on 04/08/2025 and left eye 04/18/25. She does not have the paperwork with her today and states that she is going to a place in [place]. She does not know the name or the location but her son will bring the paperwork later today. CV: bp today is 108/74. She is currently on amlodipine 5 mg daily. Tolerates this well. No leg pain, palpitations, chest pain or shortness on breath. She states that she is able to remain very active without any difficulty. Would not get winded going up a flight of stairs or walking around the building. Her cholesterol is managed with pravastatin 40 mg. Last LDL was 74. She is currently holding the aspirin leading up to the procedure. Psych: Currently well-controlled with venlafaxine 37.5 mg and hydroxyzine 25 mg at night as needed. [facility] Medical History (Updated 04/04/25 @ 09:54 by Chante Arguello PA-C) Osteoporosis Abnormal mammogram of left breast Major depressive disorder, recurrent, mild Generalized anxiety disorder Insomnia Dyslipidemia Hypertension Surgical History Hx of colonoscopy History of esophagogastroduodenoscopy (EGD) S/P total hysterectomy Social History (Updated 02/13/25 @ 15:20 by Shannan Silverio CMA) Housing: House Alcohol intake: never Patient Tobacco Use Status: Never used Tobacco e-Cigarette/Vaping Use: Never Used Second Hand Smoke Exposure: Yes (past) service: No Current occupational status: retired Cognitive needs: No Hearing needs: No Vision needs: No Questionnaire Thrive Questionnaire Date Thrive assessed: 02/13/25 I am a: Patient What is your living situation today?: I have a steady place to live THRIVE Score: 0 Physical exam (Primary Care) Vital Signs: Last Vital Signs Pulse 67 04/04/25 09:27 Resp 12 04/04/25 09:27 BP 108/74 04/04/25 09:27 Pulse Ox 97 04/04/25 09:27 Oxygen Delivery Method Room Air 04/04/25 09:27 BMI result Body Mass Index 23.2 Tobacco/Smoking Status: Tobacco use Status Tobacco use date assessed 04/04/25 04/04/25 09:30 Patient Tobacco Use Status Never used Tobacco 04/04/25 09:25 e-Cigarette/Vaping Use Never Used 04/04/25 09:25 Thrive Assessment: Date of Thrive Assessment Date Thrive assessed 02/13/25 04/04/25 09:25 Const Orientation/consciousness: patient oriented x3 HENMT Ears: hearing grossly normal bilaterally Neck Thyroid: Thyroid normal Lymphatic: no lymphadenopathy noted Resp Auscultation: clear to auscultation bilaterally Cardio Rate: regular rate Rhythm: regular rhythm Heart sounds: S1 normal heart sound present and S2 normal heart sound present GI Inspection: Yes normal to inspection Palpation (GI): Soft to palpation and Other GI palpation findings present (nontender, no cva tenderness) Auscultation: normoactive bowel sounds Rectal Exam - Female: deferred Skin General skin exam: no rashes or lesions noted Neuro General: patient oriented x3, gait normal and no focal motor deficits Office Procedures EKG Details: EKG today in office is normal sinus rhythm at a rate of 65 beats per minute with nonspecific STT wave abnormalities. EKG interpreted myself and Dr. Segovia. [id number], Complete Coding Level of Care Code Est Pt Level 4 (43186) Complex EM visit Add On G2211 Diagnoses Encounter for pre-operative examination Z01.818 Primary hypertension I10 Hypertension type: primary hypertension CPT Codes EKG - CPT: 05342-[id number], Complete ([id number]) Assessment & Plan Assessment & Plan (1) Encounter for pre-operative examination: Code(s): Z01.818 - Encounter for other preprocedural examination Plan: Patient is cleared for cataract surgery. She is at average risk for for this procedure with low risk for complications. (2) Hypertension: Code(s): I10 - Essential (primary) hypertension Category: Medical Qualifiers: Hypertension type: primary hypertension Qualified Code(s): I10 - Essential (primary) hypertension Plan: BP WNL. Orders: Orders Complete Blood Count Auto Diff Today H26.9 - Unspecified cataract, I10 - Essential (primary) hypertension, Z01.818 - Encounter for other preprocedural examination AMB EKG-In Office Today I10 - Essential (primary) hypertension, Z13.6 - Encounter for screening for cardiovascular disorders Comprehensive Met. Panel Today H26.9 - Unspecified cataract, I10 - Essential (primary) hypertension, Z01.818 - Encounter for other preprocedural examination
[2025-04-04 09:27] VITALS: BP 108/74; PULSE 67; RESP 12; O2SAT 97; BMI 23.2
== END 2025-04-04 10:13 | disposition home or self-care (01) ==
LOC: HO.HMCFM 09:15
PROVIDERS: PCP Physician Assistant; Visit Provider Physician Assistant
DX: Z01.818 Encounter for other preprocedural examination (principal); I10 Essential (primary) hypertension

== ENCOUNTER → 2025-04-04 09:14 | Outpatient (BNVA) | payer MEDICARE, OTHER, SELFPAY | PROVIDERS: PCP Physician Assistant; Visit Provider Physician Assistant | DX: Z13.89 Encounter for screening for other disorder (principal) | CPT/HCPCS: 93005; 99212 ==

== ENCOUNTER 2025-04-04 10:25 | Outpatient (REF) | payer MEDICARE, OTHER, SELFPAY ==
[2025-04-04 14:15] LABS: MANUAL DIFF FLAG NO
[2025-04-04 14:27] LABS: Basophils Percent Auto 1.1 % (0-2); Eosinophils Absolute Auto 0.2 X10*3/uL (0.0-0.4); Eosinophils Percent Auto 5.9 % (0-4); Hematocrit 37.4 % (37.0-47.0); Hemoglobin 12.3 g/dl (12.0-16.0); Imm Gran Abs Auto 0.01 X10*3/uL (0.00-0.03); Imm Gran Pct Auto 0.3 % (0.0-0.4); Lymphocytes Absolute Auto 0.9 X10*3/uL (1.2-4.9); Lymphocytes Percent Auto 25.8 % (20-40); Mean Corpuscular HGB Conc 32.9 g/dl (31.0-35.0); Mean Platelet Volume 9.6 fL (9.4-12.3); Monocytes Absolute Auto 0.3 X10*3/uL (0.1-1.2); Monocytes Percent Auto 9.5 % (2-11); Neutrophils Absolute Auto 2.1 x10*3/uL (2.0-8.3); Neutrophils Percent Auto 57.4 % (45-73); Platelet Count 280 X10*3/uL (160-400); Red Cell Distribution Width 13.2 % (11.0-16.0); White Blood Count 3.6 X10*3/uL (4.8-10.8)
[2025-04-04 14:56] LABS: Alanine Aminotransferase 13 U/L (0-31); Albumin Level 4.2 g/dL (3.5-5.0); Alkaline Phosphatase 85 U/L (39-117); Anion Gap 10 (12-20); Aspartate Amino Transferase 25 U/L (5-31); Bilirubin Total 0.3 mg/dL (0.0-1.0); Blood Urea Nitrogen 16 mg/dL (9-16); Calcium 9.6 mg/dL (8.4-10.2); Carbon Dioxide 29 mmol/L (22-29); Chloride 107 mmol/L (96-108); Cholesterol 155 mg/dL (<200); Estimated Glomerular Filt Rate > 60; Glucose Random 87 mg/dL (60-115); HDL Cholesterol 62 mg/dL (>40); LDL Cholesterol Calculated 77 mg/dL (<100); Potassium 4.5 mmol/L (3.3-5.1); Sodium 141 mmol/L (135-145); Total Protein 6.9 g/dL (6.5-8.0); Triglycerides 80 mg/dL (<150)
== END 2025-04-04 10:26 | disposition home or self-care (01) ==
LOC: HO.WFDLDS 10:25
PROVIDERS: Visit Provider Physician Assistant
DX: Z01.818 Encounter for other preprocedural examination (principal); H26.9 Unspecified cataract; I10 Essential (primary) hypertension; F33.0 Major depressive disorder, recurrent, mild; F41.1 Generalized anxiety disorder; E78.5 Hyperlipidemia, unspecified; R05.3 Chronic cough; K21.9 Gastro-esophageal reflux disease without esophagitis
CPT/HCPCS: 36415; 80053; 80061; 85025; 93005; 99212

== ENCOUNTER 2025-06-05 15:24 | Outpatient (AMB) | payer MEDICARE, OTHER, SELFPAY ==
--- NOTE | 2025-06-05 15:19 | MHC.PC.OV ---
Vital Signs 06/05/25 15:21 Height 4 ft 10 in Weight 110 lb 8 oz BMI 23.1 BP 110/72 Blood Pressure Location Lt brachial Position Sitting Respiration 14 Pulse 77 Pulse Source Pulse Oximeter Temp 98.1 F Temp Source Oral Pulse Oximetry (%) 97 Oxygen Delivery Method Room Air Intake Visit Reasons: 3-4 months Intake Note: Follow up Animal Rides Manager Required: No Allergies No Known Allergies Allergy (Verified 06/05/25 15:19) Tobacco use date assessed: 06/05/25 Fall risk assessment: No Falls in past year Last assessed Fall Risk: 06/05/25 Dental Screening Dental Screen Date: 04/04/25 HPI 3-4 months HPI Details Patient is a 69-year-old female with a significant past medical history of hypertension, hyperlipidemia, anxiety, depression and insomnia presenting today for a follow up. She states that she is leaving to go to [place] until next February. Her granddaughter's her graduating and she is going to spend time there. CV: bp today is 110/72. She is currently on amlodipine 5 mg daily. Tolerates this well. No leg pain, palpitations, chest pain or shortness on breath. She states that she is able to remain very active without any difficulty. Would not get winded going up a flight of stairs or walking around the building. Her cholesterol is managed with pravastatin 40 mg. Last LDL was 74. Psych: Currently well-controlled with venlafaxine 37.5 mg and hydroxyzine 25 mg at night as needed. [facility] Medical History (Updated 04/04/25 @ 09:54 by Chante Arguello PA-C) Osteoporosis Abnormal mammogram of left breast Major depressive disorder, recurrent, mild Generalized anxiety disorder Insomnia Dyslipidemia Hypertension Surgical History Hx of colonoscopy History of esophagogastroduodenoscopy (EGD) S/P total hysterectomy Social History (Updated 02/13/25 @ 15:20 by Shannan Silverio CMA) Housing: House Alcohol intake: never Patient Tobacco Use Status: Never used Tobacco e-Cigarette/Vaping Use: Never Used Second Hand Smoke Exposure: Yes (past) service: No Current occupational status: retired Cognitive needs: No Hearing needs: No Vision needs: No Questionnaire Thrive Questionnaire Date Thrive assessed: 02/13/25 AUDIT C Alcohol Use Questionnaire (AUDIT-C) 1. How often do you have a drink containing alcohol?: Monthly or less 2. How many drinks containing alcohol do you have on a typical day when you are drinking?: 1 or 2 3. How often do you have six or more drinks on one occasion?: Never Total Score: 1 Physical exam (Primary Care) Vital Signs: Last Vital Signs Temp 98.1 F 06/05/25 15:21 Pulse 77 06/05/25 15:21 Resp 14 06/05/25 15:21 BP 110/72 06/05/25 15:21 Pulse Ox 97 06/05/25 15:21 Oxygen Delivery Method Room Air 06/05/25 15:21 BMI result Body Mass Index 23.1 Tobacco/Smoking Status: Tobacco use Status Tobacco use date assessed 06/05/25 06/05/25 15:23 Patient Tobacco Use Status Never used Tobacco 06/05/25 15:23 e-Cigarette/Vaping Use Never Used 06/05/25 15:23 Thrive Assessment: Date of Thrive Assessment Date Thrive assessed 02/13/25 06/05/25 15:23 Const Orientation/consciousness: patient oriented x3 HENMT Ears: hearing grossly normal bilaterally Neck Thyroid: Thyroid normal Lymphatic: no lymphadenopathy noted Resp Auscultation: clear to auscultation bilaterally Cardio Rate: regular rate Rhythm: regular rhythm Heart sounds: S1 normal heart sound present and S2 normal heart sound present GI Inspection: Yes normal to inspection Palpation (GI): Soft to palpation and Other GI palpation findings present (nontender, no cva tenderness) Auscultation: normoactive bowel sounds Rectal Exam - Female: deferred Skin General skin exam: no rashes or lesions noted Neuro General: patient oriented x3, gait normal and no focal motor deficits Results Reviewed Results Reviewed: Laboratory Tests 03/13/24 01/09/25 08:54 13:46 WBC 6.7 RBC 4.84 Hgb 13.1 Plt Count 384 D Creatinine 0.69 Estimated GFR > 60 Random Glucose 87 Triglycerides 48 Cholesterol 166 LDL Cholesterol, Calc 72 HDL Cholesterol 85 Coding Level of Care Code Est Pt Level 4 (83761) Complex EM visit Add On G2211 Diagnoses Primary hypertension I10 Hypertension type: primary hypertension Generalized anxiety disorder F41.1 Major depressive disorder, recurrent, mild F33.0 Assessment & Plan Assessment & Plan (1) Hypertension: Code(s): I10 - Essential (primary) hypertension Category: Medical Qualifiers: Hypertension type: primary hypertension Qualified Code(s): I10 - Essential (primary) hypertension Plan: continue current plan (2) Generalized anxiety disorder: Code(s): F41.1 - Generalized anxiety disorder Category: Medical Plan: Continue current regimen. Currently well-controlled (3) Major depressive disorder, recurrent, mild: Code(s): F33.0 - Major depressive disorder, recurrent, mild Category: Medical Plan: As above Orders: Orders UA CC w/rflx Micro + Cult Today F33.0 - Major depressive disorder, recurrent, mild, F41.1 - Generalized anxiety disorder, I10 - Essential (primary) hypertension, Z13.220 - Encounter for screening for lipoid disorders Complete Blood Count Auto Diff Today F33.0 - Major depressive disorder, recurrent, mild, F41.1 - Generalized anxiety disorder, I10 - Essential (primary) hypertension Comprehensive Met. Panel Today F33.0 - Major depressive disorder, recurrent, mild, F41.1 - Generalized anxiety disorder, I10 - Essential (primary) hypertension TSH reflex Free T4 Today F33.0 - Major depressive disorder, recurrent, mild, F41.1 - Generalized anxiety disorder, I10 - Essential (primary) hypertension
[2025-06-05 15:21] VITALS: BP 110/72; PULSE 77; RESP 14; TEMP 36.7; O2SAT 97; BMI 23.1
--- OUTSIDE RECORDS SUMMARY | 2025-06-05 15:54 | XMS_ITS | Encounter Summary ---
Author Organization [facility] Address [address] [place] [id number] Phone Care Team Providers Care Piece Goods Packer Name Role Phone Chante Arugello Primary Care Provider [phone] Encounter Details Date Type Department Care Team (Late st Contact Info) Description 12/26/2024 Procedure Pass [facility], Ct Scan - [address] [id number] Social History Tobacco Use Types Packs/Day Years Used Date Smoking Tobacco: Never Smokeless Tobacco: Never Alcohol Use Standard Drinks/Week Comments Not Currently 0 (1 standard drink = 0.6 oz pur e alcohol) Education Answer Date Recorded Are you interested in more education? Not on jose ramon e 07/20/2023 Are you concerned about learning? Not on file 07/20/2023 No 07/20/2023 No 07/20/2023 Digital Access Answer Date Recorded No 07/20/2023 No 07/20/2023 Reliable internet access at home? Not on file 07/20/2023 Device with a working camera? Not on file Intimate Partner Violence Answer Date R ecorded Are you denied basic needs s uch as food, clothing, or medical care? No 12/26/2024 In the past 12 months have y ou been in a relationship with a person who hurts, threatens, or tries to control you? No 12/26/2024 Are you denied basic needs s uch as food, clothing, or medical care? No 12/26/2024 In the past 12 months have y ou been in a relationship with a person who hurts, threatens, or tries to control you? No 12/26/2024 Comments Unknown Sex and Gender Information Value Date Recorded Sex Assigned at Not on file Legal Sex Female 11:06 AM EDT Gender Identity Not on file Sexual Orientation Not on file documented as of this encounter Functional Status * Calculated C-SSRS Risk Score (Lifetime/Recent) Answer Date of Assessment Author No Risk Indicated 12/26/2024 4:51 AM Morena Montalvo RN * [place] Suicide Severity Rating Scale (Screener/Recent Self-Report) Question Answer Date of Assessment Author 1. Wish to be (Past 1 Month) No 025 4:51 AM Morena Montalvo RN 2. Non-Specific Active Suici carmen Thoughts (Past 1 Month) No 12/26/2024 4:51 AM Morena Montalvo RN 6. Suicidal Behavior (Lifetime) No 5 4:51 AM Morena Montalvo RN documented as of this encounter Plan of Treatment Not on file documented as of this encounter Visit Diagnoses Not on filedocumented in this encounter Additional Health Concerns Infection Onset Date Last Indicated Resolved Time CoV-Risk Comment:Per note documentation 12/26/2024 12/26/2024 5 7:40 AM EST documented as of this encounter Care Teams Piece Goods Packer Relationship Specialty Start Date End Date Chante Arguello PA PCP - General Physician Ply Bander 12/26/24 documented as of this encounter Additional Source Comments The information contained in this document represents components of the legal health record. It is not the complete legal health record.[facility]
== END 2025-06-05 15:38 | disposition home or self-care (01) ==
LOC: HO.HMCFM 15:25
PROVIDERS: PCP Physician Assistant; Visit Provider Physician Assistant
DX: I10 Essential (primary) hypertension (principal); F41.1 Generalized anxiety disorder; F33.0 Major depressive disorder, recurrent, mild

== ENCOUNTER 2025-06-05 15:24 | Outpatient (REF) | payer MEDICARE, OTHER, SELFPAY ==
[2025-06-05 18:10] LABS: MANUAL DIFF FLAG NO
[2025-06-05 18:11] LABS: Hematocrit 38.7 % (37.0-47.0); Hemoglobin 13.3 g/dl (12.0-16.0); Imm Gran Abs Auto 0.01 X10*3/uL (0.00-0.03); Imm Gran Pct Auto 0.2 % (0.0-0.4); Lymphocytes Absolute Auto 1.1 X10*3/uL (1.2-4.9); Mean Corpuscular HGB Conc 34.4 g/dl (31.0-35.0); Mean Corpuscular Hemoglobin 28.2 pg (27.0-33.0); Mean Corpuscular Volume 82.0 fL (80.0-98.0); NRBC Abs Auto 0.000 X10*3/uL (0.0-0.012); NRBC Pct Auto 0.0 /100WBC (0.0-0.2); Platelet Count 158 X10*3/uL (160-400); Red Blood Count 4.72 X10*6/uL (4.20-5.50); White Blood Count 4.9 X10*3/uL (4.8-10.8)
[2025-06-05 18:22] LABS: Appearance Urine Clear; Glucose Urine UA Negative (Negative); PH 5.5 (5.0-9.0); Specific Gravity - Urine 1.010 (1.005-1.025)
[2025-06-05 19:10] LABS: Alanine Aminotransferase 19 U/L (0-31); Albumin Level 4.6 g/dL (3.5-5.0); Alkaline Phosphatase 83 U/L (39-117); Anion Gap 13 (12-20); Aspartate Amino Transferase 23 U/L (5-31); Blood Urea Nitrogen 17 mg/dL (9-16); Calcium 9.2 mg/dL (8.4-10.2); Carbon Dioxide 24 mmol/L (22-29); Chloride 106 mmol/L (96-108); Estimated Glomerular Filt Rate > 60; Potassium 3.9 mmol/L (3.3-5.1); Sodium 139 mmol/L (135-145); Total Protein 7.3 g/dL (6.5-8.0)
== END 2025-06-05 15:25 | disposition home or self-care (01) ==
LOC: HO.WFDLDS 15:24
PROVIDERS: Nurse Practitioner Family; PCP Physician Assistant; Visit Provider Physician Assistant
DX: Z13.220 Encounter for screening for lipoid disorders (principal); I10 Essential (primary) hypertension; F33.0 Major depressive disorder, recurrent, mild; F41.1 Generalized anxiety disorder; Z91.09 Other allergy status, other than to drugs and biological substances
CPT/HCPCS: 36415; 80053; 81003; 82785; 84443; 85025; 99212